=== PATIENT | male | born 1950 | race Hispanic/Latino ===

== ENCOUNTER 2018-08-12 09:49 | Emergency (ER) | payer SELFPAY ==
[2018-08-12 10:11] LABS: Bilirubin Negative (Negative); Blood, Urine Negative (Negative); Clarity CLEAR (Clear); Glucose, Urine (Dipstick) Negative (Negative); Leukocyte Negative (Negative); Nitrite Negative (Negative); Protein, Urine (Dipstick) Negative (Neg-Trace); Specific Gravity, Urine 1.007 (1.002-1.036); Urobilinogen 0.2 mg/dL (0.2-1.0); pH, Urine 6.5 (5.0-9.0)
[2018-08-12 11:10] LABS: #Basophils 0.1 thou/uL (0.0-0.2); #Eosinphils 0.1 thou/uL (0.0-0.7); #Lymphocytes 1.2 thou/uL (1.20-3.40); #Monocytes 0.3 thou/uL (0.11-0.59); #Neutrophils 3.2 thou/uL (1.40-6.50); %Basophils 1.3 % (0.0-1.0); %Eosinophils 1.6 % (0.0-10.0); %Lymphocytes 24.8 % (21.0-51.0); %Monocytes 5.3 % (0.0-10.0); %Neutrophils 67.1 % (42.0-75.0); Hemoglobin 14.1 g/dL (14.0-18.0); Mean Corpuscular HGB CONC 33.2 g/dL (32.0-36.0); Mean Corpuscular Volume 93.4 fL (78.0-98.0); Mean Platelet Volume 7.9 fL (7.4-10.4); Platelet Count 216 thou/uL (130-400); RBC Distribution Width 12.3 % (11.5-14.5); Red Blood Cell (RBC) Count 4.55 mill/uL (4.70-6.10); White Blood Cell (WBC) Count 4.8 thou/uL (4.8-10.8)
[2018-08-12 11:27] LABS: Anion Gap 16 mmol/L (10-20); BUN (Urea Nitrogen) 29 mg/dL (8.4-25.7); Calc. Creatinine Clearance 0 mL/min (70-130); Calcium 9.2 mg/dL (7.8-10.44); Carbon Dioxide 18 mmol/L (23-31); Chloride 110 mmol/L (98-107); Estimated GFR-MDRD 30; Glucose 92 mg/dL (80-115); Potassium 3.6 mmol/L (3.5-5.1); Sodium 140 mmol/L (136-145)
== END 2018-08-12 11:50 | disposition home or self-care (01) ==
LOC: ERS 09:49
DX: N13.9 Obstructive and reflux uropathy, unspecified (principal); N28.9 Disorder of kidney and ureter, unspecified
CPT/HCPCS: 36415; 51702; 80048; 81003; 85025

== ENCOUNTER 2018-09-01 15:16 | Inpatient (IN) | payer MEDICAID, SELFPAY ==
[2018-09-01 16:07] LABS: Bilirubin Negative (Negative); Blood, Urine Large (Negative); Clarity TURBID (Clear); Glucose, Urine (Dipstick) Negative (Negative); Leukocyte Large (Negative); Nitrite Positive (Negative); Protein, Urine (Dipstick) 100 mg/dL (Neg-Trace); Specific Gravity, Urine 1.016 (1.002-1.036); Urobilinogen 0.2 mg/dL (0.2-1.0)
[2018-09-01 16:08] LABS: Bacteria/HPF 3+ HPF (None Seen); Pathc Cast-AUWi Flag 10.45 (0-2.49); RBC/HPF 21-50 HPF (0-3); Yeast-AUWi Flag 41.9 (0-25.0)
[2018-09-01 16:15] LABS: Hyaline Casts/LPF 0-3 HYALINE CAST LPF (0-3 Hyaline); Other Casts/LPF None Seen LPF (0-3 Hyaline)
[2018-09-01 16:16] LABS: Renal Epithelial 0-3 HPF (0-3); Transitional Epithelial 0-3 HPF (0-3)
[2018-09-01 16:17] LABS: #Basophils 0.1 thou/uL (0.0-0.2); #Eosinphils 0.1 thou/uL (0.0-0.7); #Lymphocytes 1.4 thou/uL (1.20-3.40); #Monocytes 0.6 thou/uL (0.11-0.59); #Neutrophils 5.3 thou/uL (1.40-6.50); %Eosinophils 1.9 % (0.0-10.0); %Lymphocytes 18.6 % (21.0-51.0); %Monocytes 7.7 % (0.0-10.0); %Neutrophils 70.9 % (42.0-75.0); Hemoglobin 13.8 g/dL (14.0-18.0); Mean Corpuscular HGB CONC 33.8 g/dL (32.0-36.0); Mean Corpuscular Hemoglobin 30.8 pg (27.0-31.0); Mean Corpuscular Volume 91.2 fL (78.0-98.0); Mean Platelet Volume 7.6 fL (7.4-10.4); Platelet Count 255 thou/uL (130-400); RBC Distribution Width 12.2 % (11.5-14.5); Red Blood Cell (RBC) Count 4.48 mill/uL (4.70-6.10); White Blood Cell (WBC) Count 7.4 thou/uL (4.8-10.8)
[2018-09-01 16:37] LABS: ALT (SGPT) 15 U/L (8-55); AST (SGOT) 19 U/L (5-34); Albumin 4.3 g/dL (3.4-4.8); Alkaline Phosphatase 71 U/L (40-150); Anion Gap 13 mmol/L (10-20); BUN (Urea Nitrogen) 26 mg/dL (8.4-25.7); Bilirubin, Total 0.7 mg/dL (0.2-1.2); Calc. Creatinine Clearance 0 mL/min (70-130); Calcium 9.8 mg/dL (7.8-10.44); Carbon Dioxide 24 mmol/L (23-31); Chloride 102 mmol/L (98-107); Estimated GFR-MDRD 28; Globulin 3.7 g/dL (2.4-3.5); Glucose 115 mg/dL (80-115); Potassium 4.2 mmol/L (3.5-5.1); Sodium 135 mmol/L (136-145)
--- NOTE | 2018-09-01 16:59 | RAD ---
CHEST ONE VIEW: 09/01/18 HISTORY: Pain. COMPARISON: None. FINDINGS: Slight elongation of the aorta. Normal cardiac silhouette. Pulmonary vessels and hilum are normal. No consolidation or mass. No pneumothorax or osseous abnormalities. Calcified granuloma of the right anika ng base. IMPRESSION: No acute cardiopulmonary process. POS: H
[2018-09-01 18:03] LABS: Troponin I Less than 0.010 ng/mL (< 0.028)
[2018-09-01] MEDS ORDERED: MEROPENEM 1 GM/50 ML 1 GM in Premix Bag 1 BAG IVPB SCH (18:30)
[2018-09-01 21:33] VITALS: BMI 28.7
[2018-09-01] MEDS: Sodium Chloride 0.45% 1,000 ML IV SCH (23:07)
[2018-09-01] MEDS: Heparin 5,000 UNITS/ML VIAL SC SCH (23:50)
[2018-09-02 05:54] LABS: #Eosinphils 0.2 thou/uL (0.0-0.7); #Lymphocytes 1.4 thou/uL (1.20-3.40); #Monocytes 0.5 thou/uL (0.11-0.59); #Neutrophils 4.3 thou/uL (1.40-6.50); %Basophils 0.5 % (0.0-1.0); %Eosinophils 2.6 % (0.0-10.0); %Lymphocytes 21.7 % (21.0-51.0); %Monocytes 8.3 % (0.0-10.0); %Neutrophils 66.9 % (42.0-75.0); Mean Corpuscular HGB CONC 33.7 g/dL (32.0-36.0); Mean Corpuscular Hemoglobin 30.9 pg (27.0-31.0); Mean Corpuscular Volume 91.6 fL (78.0-98.0); Mean Platelet Volume 7.5 fL (7.4-10.4); Platelet Count 214 thou/uL (130-400); RBC Distribution Width 12.2 % (11.5-14.5); Red Blood Cell (RBC) Count 4.22 mill/uL (4.70-6.10); White Blood Cell (WBC) Count 6.5 thou/uL (4.8-10.8)
[2018-09-02 06:06] LABS: Anion Gap 8 mmol/L (10-20); BUN (Urea Nitrogen) 20 mg/dL (8.4-25.7); Calc. Creatinine Clearance 47 mL/min (70-130); Calcium 9.2 mg/dL (7.8-10.44); Carbon Dioxide 24 mmol/L (23-31); Chloride 107 mmol/L (98-107); Estimated GFR-MDRD 40; Glucose 94 mg/dL (80-115); Potassium 4.2 mmol/L (3.5-5.1); Sodium 135 mmol/L (136-145)
--- NOTE | 2018-09-02 07:00 | PDOC.EVN ---
Event Note - Event Note Event Note: h&p dictation [id number]
[2018-09-02] MEDS: MEROPENEM 1 GM/50 ML 1 GM in Premix Bag 1 BAG IVPB SCH ×2 (08:39→20:01)
[2018-09-02] MEDS: Sodium Chloride 0.45% 1,000 ML IV SCH (08:39)
[2018-09-02] MEDS: Heparin 5,000 UNITS/ML VIAL SC SCH ×3 (08:43→20:01)
--- NOTE | 2018-09-02 13:46 | PDOC.PN ---
- Subjective Encounter Start Date: 09/02/18 Encounter Start Time: 13:44 Mr. Noa Hamilton was seen today in follow-up of UTI. He says he feels fine today. He denies abdominal pain. - Objective Resuscitation Status: Resuscitation Status FULL:Full Resuscitation MAR Reviewed: Yes Vital Signs & Weight: Vital Signs (12 hours) Temp Pulse Resp BP Pulse Ox 09/02/18 10:59 98.4 F 60 16 142/76 H 96 09/02/18 07:35 98.4 F 55 L 16 141/82 H 96 09/02/18 04:00 97.8 F 64 16 126/81 98 Weight Weight 177 lb 12.8 oz I&O: 09/01/18 09/02/18 09/03/18 06:59 06:59 06:59 Intake Total 875 266.66 Output Total 2775 Balance -1900 266.66 Result Diagrams: 09/02/18 05:29 09/02/18 05:29 Phys Exam - Physical Examination Respiratory: no wheezing, no rales, no rhonchi, clear to auscultation bilateral Cardiovascular: RRR, no significant murmur, no rub no gallop Gastrointestinal: soft, non-tender, no distention, positive bowel sounds Musculoskeletal: no edema Dx/Plan (1) UTI (urinary tract infection) Status: Acute (2) Acute renal failure Status: Acute - Plan * UTI- urine culture is growing E. Coli- sensitivities are pending * Acute renal failure- ( from volume depletion and UTI)- his renal function has improved, but it is not yet to baseline- will continue IV hydration.
--- NOTE | 2018-09-02 15:51 | CON ---
DATE OF CONSULTATION: 09/02/2018 REASON FOR CONSULTATION: Suprapubic pain and apparent prostatitis after a multicore prostate needle biopsy. HISTORY OF PRESENT ILLNESS: Mr. Julianna Hamilton is a pleasant Namibian speaking only 68-year-old Hispa abigail male. He recently underwent a prostate needle biopsy by Dr. Sanabria. The patient presented to [facility] emergency department with chills, and hypotension with blood pressure of 65/35. The patient was br ought in for management of apparent urosepsis or acute prostatitis after multicore prostate needle bi opsy. PAST MEDICAL HISTORY: Prostate nodule status post prostate needle biopsy. No other medical history known. PAST SURGICAL HISTORY: Prostate biopsy. PSYCHIATRIC: No previous known psychiatric history. SOCIAL HISTORY: The patient denies current alcohol use and drug use and has no smoking history that he reports. ALLERGIES: No known drug allergies. OUTPATIENT MEDICATIONS: The patient does not report taking any. REVIEW OF SYSTEMS: Constitutional: The patient is reported suprapubic pain in the emergency room, w hich is resolved with placement of Merida catheter, reports febrile symptoms. Head, Ears, Nose, and T hroat: Negative. Cardiac: Negative. Pulmonary: Negative. Abdominal: The patient reports suprap ubic pain. No history of GI issues. Genitourinary: The patient reports suprapubic discomfort which improved with placement of Meriad catheter. Musculoskeletal: Negative. PHYSICAL EXAMINATION: CONSTITUTIONAL: No current febrile symptoms. The patient had reported temperature of almost 100 deg leonardo in the emergency department. HEAD, EARS, NOSE AND THROAT: Negative. NECK: Negative. PULMONARY: Negative. CARDIOVASCULAR: Regular rate and rhythm without murmur, rub or gallop. Heart sounds are normal. ABDOMEN: Soft and nontender. There is no suprapubic tenderness on today's examination and apparent change from his emergency room evaluation. I note Merida catheter in place. BACK: No costovertebral angle tenderness, no point tenderness along the course of the spine. GENITOURINARY: Indwelling Merida catheter is in place. Urine has a flocculent material present in it . ASSESSMENT AND PLAN: Probable acute prostatitis, possible urosepsis, following multicore prostate ne edle biopsy. 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 Sanabria. Broad spectrum antibiotic coverage is appropriate. I would also recommend based on the presence of flocculent material in the patient's Merida catheter line that the patient also will be covered with a ppropriate antifungal agents. Total consultation assessment time over 60 minutes.
[2018-09-02] MEDS: Sodium Chloride 0.9% 1,000 ML IV SCH ×2 (16:25→22:52)
[2018-09-03] MEDS: Sodium Chloride 0.9% 1,000 ML IV SCH ×2 (03:20→16:54)
[2018-09-03 04:25] LABS: #Eosinphils 0.2 thou/uL (0.0-0.7); #Lymphocytes 1.5 thou/uL (1.20-3.40); #Monocytes 0.3 thou/uL (0.11-0.59); #Neutrophils 2.1 thou/uL (1.40-6.50); %Basophils 0.9 % (0.0-1.0); %Lymphocytes 36.2 % (21.0-51.0); %Monocytes 7.1 % (0.0-10.0); %Neutrophils 50.8 % (42.0-75.0); Hemoglobin 12.9 g/dL (14.0-18.0); Mean Corpuscular HGB CONC 33.7 g/dL (32.0-36.0); Mean Corpuscular Hemoglobin 30.8 pg (27.0-31.0); Mean Corpuscular Volume 91.4 fL (78.0-98.0); Mean Platelet Volume 7.6 fL (7.4-10.4); Platelet Count 254 thou/uL (130-400); RBC Distribution Width 12.1 % (11.5-14.5); White Blood Cell (WBC) Count 4.2 thou/uL (4.8-10.8)
[2018-09-03 04:36] LABS: Anion Gap 9 mmol/L (10-20); BUN (Urea Nitrogen) 21 mg/dL (8.4-25.7); Calc. Creatinine Clearance 50 mL/min (70-130); Calcium 9.2 mg/dL (7.8-10.44); Carbon Dioxide 25 mmol/L (23-31); Chloride 108 mmol/L (98-107); Estimated GFR-MDRD 43; Glucose 94 mg/dL (80-115); Potassium 4.2 mmol/L (3.5-5.1); Sodium 138 mmol/L (136-145)
[2018-09-03] MEDS: MEROPENEM 1 GM/50 ML 1 GM in Premix Bag 1 BAG IVPB SCH ×2 (09:24→20:41)
[2018-09-03] MEDS: Fluconazole 100 MG TAB PO SCH (09:24)
[2018-09-03] MEDS: Heparin 5,000 UNITS/ML VIAL SC SCH ×3 (09:24→20:41)
--- NOTE | 2018-09-03 16:28 | PRG ---
DATE OF SERVICE: 09/03/2018 REASON FOR CONSULTATION: 1. Suprapubic pain and apparent prostatitis after multicore prostate needle biopsy. 2. Apparent urosepsis. HISTORY OF PRESENT ILLNESS: Mr. Julianna Hamilton is a pleasant Serbian speaking only 68-year-old [place] ab[place] male who underwent a recent prostate needle biopsy by Dr. Sanabria. The patient presented to the e mergency department with chills, hypotension and blood pressure of 65/35 and was appropriately capo t in for management of apparent urosepsis and acute prostatitis after multicore prostate needle biops y. Please see my initial consultation report from 09/02/2018 for additional details. PHYSICAL EXAMINATION: VITAL SIGNS: Temperature is currently 97.6, pulse 60, respirations 16, O2 saturations 96% on room ai r, blood pressure is 168/91. HEAD, EYES, EARS, NOSE, AND THROAT: Extraocular movements are intact. Sclerae are anicteric. Oroph arynx is clear. NECK: Supple. LUNGS: Clear to auscultation bilaterally. CARDIAC: Regular rate and rhythm without murmur, rub or gallop. ABDOMEN: Soft and nontender. There is no palpable mass. BACK: No costovertebral angle tenderness on either side. GENITOURINARY: Merida catheter is in place and is draining much more clear urine today than it was ye sterday. There is no evidence of recurrent flocculent material seen in the urine. LABORATORY STUDIES: The patient's white count has dropped from 7.4 thousand on 09/01/2018, down to 4 .2 thousand which is technically low. The patient's neutrophil percentile was 50.8% currently. The ANC is 2.1. Serum chemistries show the patient's blood urea nitrogen at 21, improved from admission when it was 26 and the creatinine is now down to 1.59 from 2.30. A Merida catheter remains in place. Microbiology: The patient's urine culture obtained from Merida placed on 09/01/2018 shows presumptive E. coli. Sensitivities are not yet available for this patient's urine culture. ASSESSMENT AND PLAN: 1. Urinary outlet obstruction secondary to acute on chronic prostatitis. The patient is currently m anaged with indwelling Merida catheter. The patient will need to undergo a voiding trial in Dr. Mary garcia's office following discharge. 2. Infectious Disease concerns. The patient has Escherichia coli growing from his urine. Sensitivi ties are not yet available for this and due to these proper screening that was performed on this remi ent prior to his prostate needle biopsy by Dr. Sanabria, I would recommend this patient remain in the h ospital until the culture results are known. The patient will be appropriately treated with a long c ourse for a complicated urinary tract infection and prostatitis. Generally this will be a one month course of antibiotics to start. 3. History of elevated PSA. The patient should continue to follow up with Dr. Sanabria regarding his history as well as the results from his recently performed multicore prostate needle biopsy. Total evaluation and assessment time in this patient is over 35 minutes.
--- NOTE | 2018-09-03 16:38 | PDOC.PN ---
- Subjective Encounter Start Date: 09/03/18 Encounter Start Time: 16:36 Mr. Noa Hamilton was seen today in follow-up of UTI with acute renal failure. He does not have any complaints. - Objective Resuscitation Status: Resuscitation Status FULL:Full Resuscitation MAR Reviewed: Yes Vital Signs & Weight: Vital Signs (12 hours) Temp Pulse Resp BP Pulse Ox 09/03/18 11:56 97.6 F 60 16 168/91 H 96 09/03/18 08:00 97.9 F 60 16 127/80 96 Weight Weight 177 lb 12.8 oz I&O: 09/02/18 09/03/18 09/04/18 06:59 06:59 06:59 Intake Total 875 2126.66 Output Total 2775 2800 Balance -1900 -673.34 Result Diagrams: 09/03/18 04:09 09/03/18 04:09 Phys Exam - Physical Examination HEENT: PERRLA Respiratory: no wheezing, no rales, no rhonchi, clear to auscultation bilateral Cardiovascular: RRR, no significant murmur, no rub Gastrointestinal: soft, non-tender, no distention, positive bowel sounds Musculoskeletal: no edema Dx/Plan (1) UTI (urinary tract infection) Status: Acute (2) Acute renal failure Status: Acute - Plan * UTI- still awaiting the final culture results. I called the lab, and it should be available late tonight or tomorrow * Acute renal failure- improving
[2018-09-04] MEDS: Sodium Chloride 0.9% 1,000 ML IV SCH ×2 (04:20→18:18)
[2018-09-04] MEDS: Fluconazole 100 MG TAB PO SCH (09:42)
[2018-09-04] MEDS: MEROPENEM 1 GM/50 ML 1 GM in Premix Bag 1 BAG IVPB SCH ×2 (09:42→20:53)
[2018-09-04] MEDS: Heparin 5,000 UNITS/ML VIAL SC SCH ×3 (09:43→21:00)
[2018-09-04 09:44] LABS: Anion Gap 12 mmol/L (10-20); BUN (Urea Nitrogen) 21 mg/dL (8.4-25.7); Calc. Creatinine Clearance 61 mL/min (70-130); Calcium 9.3 mg/dL (7.8-10.44); Carbon Dioxide 22 mmol/L (23-31); Chloride 108 mmol/L (98-107); Estimated GFR-MDRD 54; Glucose 87 mg/dL (80-115); Potassium 4.1 mmol/L (3.5-5.1); Sodium 138 mmol/L (136-145)
--- NOTE | 2018-09-04 10:50 | HP ---
PRIMARY CARE PHYSICIAN: Kamila. CHIEF COMPLAINT: Suprapubic pain. HISTORY OF PRESENT ILLNESS: This is a 68-year-old male with recently diagnosed history of prostate cancer who also recently saw urologist and has a Merida placed for urinary retention and a prostate biopsy conducted. Post-procedurally , the patient had episode of chills and feeling poorly and has noticed some suprapubic discomfort post-procedurally. Of note, the patient was on ciprofloxacin for urinary tract infection. Upon presentation to the emergency department, he was found to have a blood pressure systolic of 65 and diastolic 35. He was also found at the time of presentation to have a persistent urinary tract infection. Communication with the patient's urologist demonstrated that cultures drawn previously were significant for E. coli with multiple drug resistant characteristics. In the emergency department, the patient received empiric meropenem along with IV fluid resuscitation. At the time of my evaluation, patient feels significantly improved. No longer have chills. Blood pressure has also significantly improved. REVIEW OF SYSTEMS: As per HPI. CONSTITUTIONAL: The patient denies any fevers , but endorses chills as noted above. HEENT: No new headaches, dizziness, lightheadedness, or changes in vision. CARDIOVASCULAR: Denies any chest pain, chest pressure, left-sided arm numbness or tingling. Denies any bilateral lower extremity swelling. RESPIRATORY: Denies any shortness of breath, issues with congestion, cough or recent upper respiratory infection. GASTROINTESTINAL : Denies any nausea, vomiting, suprapubic pain as above, but no other abdominal pain. GENITOURINARY: As described above. MUSCULOSKELETAL: Denies any myalgias or arthralgias. HOME MEDICATIONS: Over the counter medications, supplements, vitamins. Patient also denies taking any regular home medications. ALLERGIES: No known drug allergies. FAMILY HISTORY: Patient denies any family history of other family members with prostate cancer, any type cancer, drug resistant infections. Patient's personal and past medical history has been grossly negative up to this point. SOCIAL HISTORY: The patient denies any alcohol, tobacco or illicit drug use. The patient indicates he wishes to be FULL CODE. PHYSICAL EXAMINATION: GENERAL: Patient is awake, alert and conversant. The patient is Lao- speaking only and entire history and physical was obtained, otherwise child adolescent psychiatrist at bedside. HEENT: Normocephalic, atraumatic. Extraocular motions are intact. Poor dentition, moist mucous membranes. CARDIOVASCULAR: S1, S2. No murmurs, rubs or gallops. Pulses 2+ in bilateral lower and upper extremities. No peripheral edema. RESPIRATORY: Equal air movements. No wheezes, rales or rhonchi. Grossly clear to auscultation without shortness of breath on conversation. ABDOMEN: Positive bowel sounds, soft, slightly tender in the suprapubic region. The Merida was draining light yellow urine. LABORATORY DATA: WBC 7.4, hemoglobin 13.8, hematocrit 40.9, platelets 255. Sodium 135, potassium 4.2, chloride 102, bicarbonate 13, BUN 26, creatinine 2.3 , glucose 115, lactic acid 1.3, calcium 9.8, total bilirubin 0.7, AST 19, ALT 15 , alkaline phosphatase 71. Troponin less than 0.01. Total protein 8.0 and albumin 4.3. UA is positive for protein, large amount of blood, positive nitrite, leukocyte esterase large, urine RBC 21-50, urine WBCs greater than 50, squamous epithelial cells 4-6, urine bacteria 3+. ASSESSMENT AND PLAN: This is a 68-year-old female who presents with a chief complaint of chills. 1. Sepsis: Chills and hypotension with a source which is urinary tract infection which is known to be drug-resistant based on prior sensitivity. Repeat urine culture given the patient's hypotension, concern for the possibility of bacteremia. Pending blood cultures. Empiric meropenem and close monitoring of the patient's continued hemodynamics. We will check orthostatic vital signs as well. Not likely acute kidney injury in the setting of obstructive uropathy. The patient currently has a Merida in place. We will continue to monitor the patient's renal function and urine output. If no significant improvement on a rapid timeframe, low threshold for consulting both Urology and Nephrology depending on patient's progress. Prostate Cancer - appears to be stable. Continue to monitor urine output. DIET: As tolerated. ACTIVITY: As tolerated. Deep venous thrombosis prophylaxis with heparin. The patient is admitted to the oncology floor. The patient is a FULL CODE. MTDD
--- NOTE | 2018-09-04 13:40 | PDOC.PN ---
- Subjective Encounter Start Date: 09/04/18 Encounter Start Time: 13:34 Mr. Latham was seen today in follow-up of UTI with sepsis. He does not have any complaints. - Objective Resuscitation Status: Resuscitation Status FULL:Full Resuscitation MAR Reviewed: Yes Vital Signs & Weight: Vital Signs (12 hours) Temp Pulse Resp BP Pulse Ox 09/04/18 11:55 98.0 F 66 16 128/75 94 L 09/04/18 08:51 97.8 F 61 16 149/81 H 93 L 09/04/18 04:29 97.9 F 60 20 140/65 97 Weight Weight 177 lb 12.8 oz I&O: 09/03/18 09/04/18 09/05/18 06:59 06:59 06:59 Intake Total 2126.66 2075 Output Total 2800 2900 Balance -673.34 -825 Result Diagrams: 09/03/18 04:09 09/04/18 08:43 Phys Exam - Physical Examination Respiratory: no wheezing, no rales, no rhonchi, clear to auscultation bilateral Cardiovascular: RRR, no significant murmur, no rub Gastrointestinal: soft, non-tender, no distention, positive bowel sounds Musculoskeletal: no edema Dx/Plan (1) UTI (urinary tract infection) Status: Acute (2) Acute renal failure Status: Acute (3) Urinary retention Code(s): R33.9 - RETENTION OF URINE, UNSPECIFIED Status: Acute - Plan * UTI due to E. Coli which is Multi- Drug resistant- Will continue Meropenem, and Consult ID * Acute renal failure- improving * Urinary Retention- Will need to leave Merida catheter in place at discharge * Consult Case Management for Outpatient IV antibiotics.
--- NOTE | 2018-09-04 13:42 | CON ---
DATE OF CONSULTATION: 09/04/2018 REASON FOR CONSULTATION: Urinary tract infection. HISTORY OF PRESENT ILLNESS: A 68-year-old patient who has a history of urinary obstruction which req uired Merida catheter placement and evidence of prostate cancer on prostate biopsy with an elevated PS A. Before the biopsy he had a screening for resistant pathogens and the organism appears to be susce ptible to Bactrim. He was given that as a prophylactic therapy, but now has an ESBL organism retriev ed. He feels improvement in his symptoms of chills and fever and suprapubic discomfort. REVIEW OF SYSTEMS: Denies any headaches, visual symptoms, sore throat, odynophagia, dysphagia, no co ugh or sputum production or chest pain, no abdominal pain, no diarrhea, no bleeding. No joint sympto ms. No neurological symptoms. PAST MEDICAL HISTORY: Urinary obstruction due to prostate cancer, recently diagnosed. ALLERGIES: None. FAMILY HISTORY: Noncontributory. SOCIAL HISTORY: No smoking history. CURRENT MEDICATIONS: Diflucan, heparin, meropenem. PHYSICAL EXAMINATION: VITAL SIGNS: T-max 98.2, blood pressure 140/80, pulse 61, O2 saturation 94%. GENERAL: Appears no distress. SKIN: With some maceration and intertriginous mass eruption in the groin area. Peripheral IV access . The patient has a Merida catheter. No lymphadenopathy. HEENT: Ocular movements conjugate. Oral cavity with few missing teeth. No oral mucosal lesions. NECK: Supple, no jugular vein distention, no thyromegaly. LUNGS: With symmetric clear breath sounds. HEART: S1, S2, regular rate. No S3, S4. ABDOMEN: Soft, not distended or tender. No bladder distention. EXTREMITIES: No joint inflammatory activity. Pulses 1+ in dorsalis pedis. No edema. Plantar respo nses are flexor. NEUROLOGIC: Cognitive function appears to be intact. LABORATORY DATA: White cell count of 7.4, now 4.2, hemoglobin 12.9, MCV 91, platelets normal and the sodium 135, creatinine was 2.3 and now 1.31, GFR up from 28-54. Liver profile normal, albumin 4.3. Urinalysis was greater than 50 WBCs. Culture with ESBL E. coli retrieved. Two sets of blood cultur es thus far negative. ASSESSMENT: Newly identified prostate cancer with urinary obstruction requiring Merida catheterizatio n now with evidence of an invasive urinary tract infection. Bacteremia has not yet been identified. We will switch him to IV Invanz in the outpatient setting fo r about 10 days. PICC line placement. The patient will likely need intervention and he may have to repeat a course of Invanz prior to the intervention and continuing in the days immediately after the TURP.
[2018-09-05 06:08] LABS: BUN (Urea Nitrogen) 19 mg/dL (8.4-25.7); Calc. Creatinine Clearance 54 mL/min (70-130); Calcium 9.3 mg/dL (7.8-10.44); Carbon Dioxide 25 mmol/L (23-31); Estimated GFR-MDRD 48; Glucose 95 mg/dL (80-115)
[2018-09-05] MEDS: Sodium Chloride 0.9% 1,000 ML IV SCH (06:10)
[2018-09-05 06:20] LABS: Chloride 108 mmol/L (98-107); Potassium 4.7 mmol/L (3.5-5.1); Sodium 140 mmol/L (136-145)
[2018-09-05 06:23] LABS: Anion Gap 13 mmol/L (10-20)
[2018-09-05] MEDS: MEROPENEM 1 GM/50 ML 1 GM in Premix Bag 1 BAG IVPB SCH (07:58)
[2018-09-05] MEDS: Fluconazole 100 MG TAB PO SCH (08:27)
[2018-09-05] MEDS: Heparin 5,000 UNITS/ML VIAL SC SCH (10:55)
--- NOTE | 2018-09-05 13:38 | PDOC.PN ---
- Subjective Encounter Start Date: 09/05/18 Encounter Start Time: 13:36 Mr. Latham was seen today in follow-up of UTI with sepsis. He does not have any complaints. - Objective Resuscitation Status: Resuscitation Status FULL:Full Resuscitation MAR Reviewed: Yes Vital Signs & Weight: Vital Signs (12 hours) Temp Pulse Resp BP Pulse Ox 09/05/18 08:00 100 09/05/18 07:47 97.8 F 58 L 18 150/84 H 98 09/05/18 05:00 98.6 F 60 16 146/87 H 97 Weight Weight 177 lb 12.8 oz I&O: 09/04/18 09/05/18 09/06/18 06:59 06:59 06:59 Intake Total 2075 1100 Output Total 2900 1825 Balance -825 -725 Result Diagrams: 09/03/18 04:09 09/05/18 05:24 Phys Exam - Physical Examination Respiratory: no wheezing, no rales, no rhonchi, clear to auscultation bilateral Cardiovascular: RRR, no significant murmur, no rub Gastrointestinal: soft, non-tender, no distention, positive bowel sounds Musculoskeletal: no edema Dx/Plan (1) UTI (urinary tract infection) Status: Acute (2) Acute renal failure Status: Acute (3) Urinary retention Code(s): R33.9 - RETENTION OF URINE, UNSPECIFIED Status: Acute - Plan * UTI with sepsis- improved * Outpatient antibiotics have been arranged * He is stable for discharge home.
[2018-09-05 14:58] VITALS: BP 152/84; TEMP 98.3
--- NOTE | 2018-09-05 15:52 | SPC ---
SONOGRAPHIC GUIDED LEFT UPPER EXTREMITY PICC: History: Urinary tract infection. Long-term antibiotics. FINDINGS: After explaining the procedure and answering all questions, the left upper extremity was prepped and draped in the usual sterile fashion. Sterile technique, buffered local anesthesia, sonographic guidan ce, and a 22 gauge needle were used to carefully access the left basilic vein. Standard technique was used to place the tip of a 5 Malay dual-lumen PICC so that the tip lies at the level of the cavoatr ial junction. Catheter was flushed and secured externally. Patient tolerated the procedure well and w as returned in unchanged condition. Fluoro time 0 seconds. IMPRESSION: Left upper extremity PICC is ready for use. POS: SUMAN
--- NOTE | 2018-09-05 22:18 | DIS ---
DATE OF ADMISSION: 09/01/2018 DATE OF DISCHARGE: 09/05/2018 [facility] DISPOS[facility]: Home. PRIMARY DISCHARGE DIAGNOSES: 1. Urinary tract infection secondary to Escherichia coli, which is multidrug resistant. 2. Acute renal failure secondary to obstructive uropathy. 3. Obstructive Uropathy 4. BPH. DISCHARGE MEDICATIONS: Patient will be receiving Invanz 1 gram IV daily at the infusion center for the next 10 days. PROCEDURES DONE DURING ADMISSION: No special procedures done. ALLERGIES: No known drug allergies. CODE STATUS: FULL CODE. HOSPITAL COURSE: Mr. Latham is a pleasant 68-year-old gentleman who was admitted to the hospital. When he presented to the emergency room with hypotension and suprapubic discomfort. He also had fevers or subjective chills and feeling generally bad. He was evaluated in the emergency room and found to have findings suggestive of a urinary tract infection as well as an acute renal failure. His creatinine on the initial presentation was approximately 2.3. He was started on IV fluids as well as IV antibiotics. He was seen by Urology and a Merida catheter was placed due to the urinary retention. He has an enlarged prostate and it is suspected that this could be the reason for the urinary retention. Urinary tract infection or the urine culture grew E. coli, which was resistant to most IV antibiotics; however, it was sensitive to meropenem and Invanz. He will therefore be seen in the infusion center for IV Invanz for the next 10 days. He is to continue with the Merida catheter until he is seen by Urology. I spoke with Dr. Mortensen, he says he is probably going to need a transurethral prostatic resection in the outpatient setting. He suspects that he likely has prostate cancer. The acute renal failure was improving after relief of the obstruction with his creatinine at 1.46 at time of discharge. He is to follow up with Dr. Mortensen as instructed. YAMILE
[2018-09-06] MEDS ORDERED: Heparin 5,000 UNITS/ML VIAL SC SCH (09:00)
--- NOTE | 2018-09-07 10:31 | PQF ---
I only saw the patient on admission and can therefore best comment on that part. It appears that the request is for diagnosis at discharge. Please re- route to the discharging physician and let me know if there is any difficulty. Thank you. [employer] Tim Adler PEGGY ERIC [id number] CLINICAL DOCUMENTATION CLARIFICATION FORM: POST DISCHARGE Addendum to original discharge summary date: ____ Late entry note date: __ Please exercise your independent, professional judgment in responding to the clarification form. Clinical indicators are provided on the bottom of this form for your review Please check appropriate box(es): [ ] Sepsis due to: (UTI, acute prostatisis, post needle biopsy, etc.) Due to: [ ] Device (please specify) [ ] Implant [ ] Graft [ ] Infusion [ ] SIRS due to non-infectious process (please specify etiology) [ ] with organ dysfunction [ ] without organ dysfunction [ ] Severe sepsis with acute organ dysfunction of: (Examples: respiratory failure, encephalopathy, acute kidney failure, other) [ ] Septic Shock [ ] Localized infection without sepsis [ ] Other diagnosis [ ] Unable to determine In addition, please specify: Present on Admission (POA): [ ] Yes [ ] No [ ] Unable to determine For continuity of documentation, please document condition throughout progress notes and discharge summary. Thank You. CLINICAL INDICATORS - SIGNS / SYMPTOMS / LABS apparent prostatitis after needle biopsy- consult 09/02 urosepsis or acute prostatitis after needle biopsy- consult 09/02 probable avute prostatitis, possible urosepsis following prostate needle biopsy - consult 09/02 apparent urosepsis and acute prostatitis following needle biopsy- pn 09/03 uti with sepsis- pn 09/04, 09/05 RISK FACTORS hypotension Infection/Bacteremia UTI, acute prostatitis prostate cancer [employer] ViewerTREATMENTS: ID Consult IV antibiotics - broad spectrum IV ?uids (This form is maintained as a part of the permanent medical record) 2014 [employer]. All Rights Reserved [email or web address] [email or web address] [phone] MTDD
--- NOTE | 2018-09-12 07:22 | PQF ---
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 Clinical indicators are provided on the bottom of this form for your review Please check appropriate box(es): [ X ] Sepsis due to: (UTI, acute prostatitis, post needle biopsy etc.) Due to: [ ] Device (please specify) [ ] Implant [ ] Graft [ ] Infusion [ ] SIRS due to non-infectious process (please specify etiology) [ X ] with organ dysfunction [ ] without organ dysfunction [ ] Severe sepsis with acute organ dysfunction of: (Examples: respiratory failure, encephalopathy, acute kidney failure, other) [ ] Septic Shock [ ] Localized infection without sepsis [ ] Other diagnosis [ ] Unable to determine In addition, please specify: Present on Admission (POA): [ X ] Yes [ ] No [ ] Unable to determine For continuity of documentation, please document condition throughout progress notes and discharge summary. Thank You. CLINICAL INDICATORS - SIGNS / SYMPTOMS / LABS apparent prostatitis after needle biopsy- consult 09/02 urosepsis or acute prostattis after needle biopsy- consult 09/02 probble acute prostatitis. possible urosepsis following prostate needle biopsy- consult 09/02 apparent urosepsis and acute prostatitiis following needle biopsy- pn 09/03 uti with sepsis- pn 09/04, 09/05 RISK FACTORS hypotensions infection/bacteremia uti, acute prostatitis prostate cancer [employer] Senior Net Software Engineer [employer] Win[employer] ViewerTREATMENTS: ID Consult IV antibiotics - broad spectrum IV ?uids (This form is maintained as a part of the permanent medical record) 2014 [email or web address]. All Rights Reserved Kimberli [email or web address] [phone] MTDD
== END 2018-09-05 15:49 | disposition home or self-care (01) | DRG 862 ==
LOC: ERS 15:16 → ONC 19:51 → OBSVTOIN 19:51 → ONC 09-04 14:56
PROVIDERS: ADMIT Internal Medicine; ATTEND Internal Medicine
PROC: 02HV33Z Insertion of Infusion Device into Superior Vena Cava, Percutaneous Approach (ICD-10-PCS; principal; 2018-09-05)
DX: T81.40XA Infection following a procedure, unspecified, initial encounter (principal); A41.9 Sepsis, unspecified organism; N39.0 Urinary tract infection, site not specified; N41.0 Acute prostatitis; N17.9 Acute kidney failure, unspecified; N13.8 Other obstructive and reflux uropathy; T81.44XA Sepsis following a procedure, initial encounter; C61 Malignant neoplasm of prostate; N40.1 Benign prostatic hyperplasia with lower urinary tract symptoms; R33.8 Other retention of urine; B96.20 Unspecified Escherichia coli [E. coli] as the cause of diseases classified elsewhere
CPT/HCPCS: 36415; 36569; 71045; 80048; 80053; 81003; 81015; 82553; 83605; 84484; 85025; 87040; 87077; 87086; 87186; 96361; 96365; J1644; J2185; J7050

== ENCOUNTER 2018-09-11 09:17 | Outpatient (CLI) | payer OTHER, SELFPAY ==
[2018-09-11] MEDS ORDERED: Iopamidol 370 76% 100 ML VIAL ONE (12:00)
--- NOTE | 2018-09-11 12:29 | CT ---
CT OF THE ABDOMEN AND PELVIS WITHOUT AND WITH CONTRAST: Comparison: None. History: Prostate cancer after recent biopsy. Technique: Multiple contiguous axial images were obtained in a CT of the abdomen and pelvis without a nd with IV contrast. Post contrast images were obtained in nephrographic and expiratory phases. Coron al reformats were performed. FINDINGS: There are nonobstructing calcifications in the right kidney measuring up to 1.3 cm in size. There is prominence of both ureters, left greater than right. There is a calculus in the distal right ureter m easuring 7 mm in size. No calcifications are seen in the left ureter. There are multiple calcificatio ns in the urinary bladder. Some of these calcifications are at the ureterovesical junction. The large st calcification seen on the left measures 8 mm in size. There is a Merida catheter in the urinary willi dder. The prostate is enlarged. There are numerous cysts in both kidneys, measuring up to 2.4 cm in s ize. No suspicious renal masses are identified. The liver, gallbladder, adrenal glands, spleen, and pancreas are unremarkable. No delay in either nep hrogram is seen. No abdominal or pelvic lymphadenopathy are appreciated. The large and small bowel are unremarkable. Degenerative changes are seen in the spine. The abdominal wall soft tissues are unremarkable. There i s a calcified granuloma in the right lower lung. IMPRESSION: 1. Right nonobstructing renal calculi. 2. Bilateral renal cysts. 3. Bladder calculi with prominence of both ureters. Some of these bladder calculi could potentially b e obstructing the distal ureters at the ureterovesical junction. 4. Bilateral nonobstructing renal calcifications and renal cysts. 5. Right ureteral calcification. POS: [facility]
--- NOTE | 2018-09-11 15:42 | NM ---
WHOLE BODY BONE SCAN: HISTORY: Malignant neoplasm of the prostate. COMPARISON: None. CORRELATION: CT abdomen and pelvis from today. RADIOPHARMACEUTICAL: Technetium 99m MDP, 33 millicuries, injected intravenously. FINDINGS: Increased uptake in the shoulders, sternoclavicular joints, elbows, wrists, knees, ankles, and feet, consistent with degenerative changes. There is a focus of intense uptake in the region of the left s uperior orbit. Tracer excretion through the kidneys is seen into the ureters and urinary bladder. A Merida catheter is present with a collection of urine in a bag, at the medial aspect of the left thigh. IMPRESSION: Nonspecific focus of increased uptake in the left superior orbit. Recommend correlation with a CT scan. POS: [facility]
== END 2018-09-11 09:18 | disposition home or self-care (01) ==
LOC: CT 09:17
PROVIDERS: ATTEND Urology
DX: C61 Malignant neoplasm of prostate (principal); N20.0 Calculus of kidney; N28.1 Cyst of kidney, acquired; N28.89 Other specified disorders of kidney and ureter; N21.0 Calculus in bladder
CPT/HCPCS: 74178; 78306; 82565; A9503

== ENCOUNTER 2018-09-22 08:01 | Day surgery (SDC) | payer SELFPAY ==
[2018-09-22 09:07] LABS: Hemoglobin 13.8 g/dL (14.0-18.0); Mean Corpuscular HGB CONC 33.5 g/dL (32.0-36.0); Mean Corpuscular Hemoglobin 30.3 pg (27.0-31.0); Mean Corpuscular Volume 90.4 fL (78.0-98.0); Mean Platelet Volume 7.1 fL (7.4-10.4); Platelet Count 235 thou/uL (130-400); RBC Distribution Width 12.3 % (11.5-14.5); Red Blood Cell (RBC) Count 4.55 mill/uL (4.70-6.10); White Blood Cell (WBC) Count 4.6 thou/uL (4.8-10.8)
[2018-09-22 09:13] LABS: Prothrombin Time 12.9 SEC (12.0-14.7)
[2018-09-22 09:14] LABS: PTT 33.4 SEC (22.9-36.1)
[2018-09-22 09:28] LABS: Anion Gap 13 mmol/L (10-20); BUN (Urea Nitrogen) 18 mg/dL (8.4-25.7); Calc. Creatinine Clearance 0 mL/min (70-130); Calcium 9.2 mg/dL (7.8-10.44); Carbon Dioxide 23 mmol/L (23-31); Chloride 107 mmol/L (98-107); Estimated GFR-MDRD 53; Glucose 93 mg/dL (80-115); Potassium 3.9 mmol/L (3.5-5.1); Sodium 139 mmol/L (136-145)
[2018-09-22] MEDS ORDERED: Fentanyl 100 MCG/2 ML VIAL ONE (11:06)
[2018-09-22] MEDS ORDERED: Iothalamate Meglumine 60% 50 ML VIAL FS ONE (11:38)
--- NOTE | 2018-09-22 13:13 | OP ---
DATE OF PROCEDURE: 09/22/2018 PREOPERATIVE DIAGNOSES: 1. Prostate cancer. 2. Bilateral hydro. 3. Left ureteral stone. 4. Bladder stones POSTOPERATIVE DIAGNOSES: 1. Prostate cancer. 2. Bilateral hydro. 3. Left ureteral stone. 4. Bladder stones 5. Probable left ureteral stone and locally advanced prostate cancer over the left trigone and left ureteral orifice. PROCEDURE PERFORMED: Cystoscopy, bilateral retrogrades, bilateral stent placement. SURGEON: Dr. Donny Sanabria ANESTHETIC: General. ESTIMATED BLOOD LOSS: Minimal. FINDINGS: There is 2, at most 3 bladder stones. The CAT scan appeared to show more than this. I th ink when looking at the CAT scan he probably actually has bilateral ureteral stones. He has an obvi ous tumor extension onto the trigone. The right ureteral orifice seems to be in its normal position, looked fairly normal. The left one on left side of the trigone appeared very edematous and appears to probably be becoming infiltrated with locally advancing prostate cancer. OPERATIVE TECHNIQUE: After obtaining written for verbal consent from the patient, [facility] He was placed in supine position on the treatment table. PlexiPulses were placed on his lower extremities and turned on. He was given a general anesthetic, oral obturator intubatio n. He was placed in the dorsal lithotomy position, sterilely prepped and draped. Cystoscopy was per formed with a 22-Kyrgyz sheath. This was well lubricated, passed under direct vision through the mal e urethra into the urinary bladder with aid of 30 degree lens and a video camera and monitor. There is no evidence of stricture disease, enlarged prostate lateral lobes. There was ill definition betwe en the bladder neck and the prostate and a very abnormal appearing trigone, especially on the left si de, making the left ureteral orifice unable to be easily seen. We went ahead because of these findin gs and attempted first to find the left ureteral orifice. This was done with a Pollack catheter 5-Fr ench and an angle tipped Glidewire, we were able to identify it after painstakingly looking through a ll this area of edema and then were able to feed a guidewire up it, open-ended catheter up over this and then pulled the guidewire, inject contrast showing a significantly hydronephrotic left ureter and probably a left distal stone. The guidewire was replaced. The open-ended catheter was removed and a 6 x 24 Polaris was then placed. We went ahead at this point because of the findings and did a the right retrograde. This was much easier and the right side was not significantly dilated. There did appear to be a stone on this side on the distal ureter. A guidewire was fed up on this side and cont rast was again injected through the Pollack catheter and the stent was placed up this side. No strin g was left on either of the 6 x 24 Polaris stents. The bladder straining instruments were removed. A new Merida catheter was placed as the patient had been in retention. A rectal exam was also done wh ich continues to reveal bilateral prostatic induration. The left side seems to be larger than the ri ght in terms of the size an area of induration, but it is certainly bilateral and it feels fixed on b imanual exam. This is a locally advanced prostate cancer and not something that would be amenable to radical prostatectomy both by bimanual exam with him asleep as well as with our cystoscopic findings indicating invasion into the bladder neck. At this point, the patient was taken out of dorsal litho madeline position, awakened, extubated, and taken by stretcher to the recovery room.
--- NOTE | 2018-09-22 14:32 | RAD ---
RETROGRADE URETEROGRAM INTRAOPERATIVE FLUOROSCOPY: History: Ureteral obstruction. FINDINGS/IMPRESSION: Intraoperative fluoroscopy was provided for retrograde study as performed by Dr. Wilkins. Spot fluoros copic images show contrast opacification of each renal collecting system and ureter with placement of double pigtail stents overlying each ureter, in good radiographic position. POS: [facility]
== END 2018-09-22 14:45 | disposition home or self-care (01) ==
LOC: SDC 08:01
PROVIDERS: ATTEND Urology
PROC: 0T788DZ Dilation of Bilateral Ureters with Intraluminal Device, Via Natural or Artificial Opening Endoscopic (ICD-10-PCS; principal; 2018-09-22)
DX: N13.2 Hydronephrosis with renal and ureteral calculous obstruction (principal); C61 Malignant neoplasm of prostate
CPT/HCPCS: 36415; 74420; 80048; 85027; 85610; 85730; C1758; C1769; J3010; Q9961

== ENCOUNTER 2018-10-04 06:47 | Day surgery (SDC) | payer SELFPAY ==
[2018-10-03 14:10] VITALS: BMI 27.9
[2018-10-04] MEDS ORDERED: Iothalamate Meglumine 60% 50 ML VIAL FS ONE (09:17)
[2018-10-04] MEDS ORDERED: Fentanyl 100 MCG/2 ML VIAL ONE ×2 (09:27)
[2018-10-04] MEDS ORDERED: PROPOFOL 200 MG/20 ML VIAL ONE (09:51)
[2018-10-04] MEDS ORDERED: Lidocaine 1% PF 5 ML VIAL ONE (09:51)
[2018-10-04] MEDS ORDERED: Glycopyrrolate 0.2 MG/ML 5 ML SYRINGE ONE (09:51)
[2018-10-04] MEDS ORDERED: Ondansetron PF 4 MG/2 ML Vial ONE (09:51)
[2018-10-04] MEDS ORDERED: ePHEDrine/0.9% NaCl/PF SYRINGE 50 mg/10 ml ONE (09:51)
--- NOTE | 2018-10-04 13:39 | RAD ---
RETROGRADE URETEROGRAM INTRAOPERATIVE FLUOROSCOPY: HISTORY: Stone removal. FINDINGS: Intraoperative fluoroscopy was provided for retrograde study as performed by Dr. Sanabria. Multiple sp ot images show initial bilateral ureteral stents. There is catheterization and contrast opacificatio n of dilated bilateral renal collecting systems. Final images show double pigtail ureteral stents in place. POS: [facility]
--- NOTE | 2018-10-04 14:17 | OP ---
DATE OF PROCEDURE: 10/04/2018 PREOPERATIVE DIAGNOSES: Bladder stones, bilateral hydronephrosis, prostate cancer and possible bilateral ureteral stones. PROCEDURE: Cystoscopy, laser lithotripsy of bladder stones, right rigid ureteroscopy, laser lithotripsy, and left rigid ureteroscopy. SPECIMEN: blladder and right ureteral stones. DRAINS PLACED: A 6 x 24 Polaris double-J stents bilaterally. A string attached in an 18 Tongan Merida catheter. FINDINGS: Three bladder stones that were broken up with laser and removed in pieces. There was a right distal stone broke up with laser and removed in pieces. There was no evidence of left ureteral stones. I think the left hydronephrosis is likely on the basis of his prostate cancer. OPERATIVE TECHNIQUE: After obtaining written and verbal consent from the patient, he was taken to the operating suite. He has already been on IV antibiotics as an outpatient basis. He was taken to the operating room and placed in supine position on the treatment table. PlexiPulses placed on his lower extremities and turned on. He was given a general anesthetic, oral obturator intubation. He was placed in dorsal lithotomy position and sterilely prepped and draped. Cystoscopy was performed with a 22-Tongan sheath. This was well lubricated, passed under direct vision through the male urethra into the urinary bladder with the video camera and monitor. The bladder had already been previously examined. We filled and emptied a number of times and then brought in a small caliber laser fiber to break up the bladder stones and remove those in pieces with a pair of grasping forceps. At this point, the right double-J stent was brought out through the tip of the urethral meatus with a pair of grasping forceps and a wire was fed up through it. The instruments were removed and a rigid ureteroscope was brought in and passed under direct vision through the male urethra into the bladder and up adjacent to the guidewire. A stone was seen in the distal ureter was broken up with laser and then removed with nitinol basket and pieces. We repeated ureteroscopy up to the vessels on this side. There were no other stones seen. We replaced over the Guide-wire double-J stent, left the string attached to it. After injecting contrast into the upper, mid and distal ureter and renal caliceal system to document no further evidence of any ureteral stones or obstruction. He was still hydronephrotic on this side. There was no extravasation. The left side was then done in the same manner. Ureteroscopy No stones were seen on this side. This probably on relationship either to his inability to empty his bladder and bladder distention or 3 prostate cancer and I think it more likely it is related to prostate cancer invading the trigone and ureteral orifice. We did inject contrast up this side also and then replace the stent on this side leaving a string attached to it. At this point, the bladder was drained. A Merida catheter was inserted. It was irrigated, it is light pink in color. It was connected to a drainage bag. He was taken out of dorsal lithotomy position, awakened, extubated, and taken by stretcher to the recovery room. YAMILE
--- NOTE | 2018-10-09 08:54 | PQF ---
[facility] POST DISCHARGE CLINICAL DOCUMENTATION IMPROVEMENT CLARIFICATION FORM l Todays Date: 10/07/18 l Patients Name Tim ROMERO l l Admit Date 10/04/18 l Disch Date 10/04/18 Operations Support Manager Name Ramon Porter Email: [email or web address] Cell: [phone] To be completed by Operations Support Manager: Present Clinical Indicators - Signs / Symptoms Results and Location in Medical Record [ ] Documentation of: [ ] [ ] Documentation of: [ ] [ ] Documentation of: [ ] [ ] Documentation of: [ ] [ ] Risks [ ] [ ] [ ] Treatment [ ] BLADDER CALCULUS QUERY FOR SIZE BLADDER CALCULUS [ ] [ ] To be completed by Physician: RUEL HANNA The documentation in this patients record requires clarification to ensure coding compliance and accuracy. Check the appropriate box and include in your discharge summary. [ ] [ ] [ ] [ ] Please check this box if this does not apply to this patient [ ] Unable to determine [ ] Other diagnosis: Review the following information and exercise your independent professional judgment in responding to the clarification. Based upon the clinical findings, risk factors, and treatment, please clarify if you are treating one of the above probable or suspected diagnoses. Physician Signature: Date Time MTDD
[2018-10-11 13:17] LABS: CA Oxalate Monohydrate 90 % (.); Color Brown (.); Stone Weight 388.7 mg (.)
== END 2018-10-04 13:40 | disposition home or self-care (01) ==
LOC: SDC 06:47
PROVIDERS: ATTEND Urology
PROC: 0TC68ZZ Extirpation of Matter from Right Ureter, Via Natural or Artificial Opening Endoscopic (ICD-10-PCS; principal; 2018-10-04)
PROC: 0T788DZ Dilation of Bilateral Ureters with Intraluminal Device, Via Natural or Artificial Opening Endoscopic (ICD-10-PCS; principal; 2018-10-04)
PROC: 0TCB8ZZ Extirpation of Matter from Bladder, Via Natural or Artificial Opening Endoscopic (ICD-10-PCS; principal; 2018-10-04)
DX: N13.2 Hydronephrosis with renal and ureteral calculous obstruction (principal); N21.0 Calculus in bladder; C61 Malignant neoplasm of prostate; Z79.2 Long term (current) use of antibiotics
CPT/HCPCS: 74420; 82365; 88300; C1758; C1769; J1642; J2001; J2405; J2704; J3010; Q9961

== ENCOUNTER 2018-10-16 16:02 | Inpatient (IN) | payer MEDICAID, SELFPAY ==
[2018-10-16 16:38] LABS: Hemoglobin 14.4 g/dL (14.0-18.0); Mean Corpuscular HGB CONC 34.9 g/dL (32.0-36.0); Mean Corpuscular Hemoglobin 30.7 pg (27.0-31.0); Mean Platelet Volume 7.9 fL (7.4-10.4); Platelet Count 202 thou/uL (130-400); RBC Distribution Width 12.9 % (11.5-14.5); Red Blood Cell (RBC) Count 4.69 mill/uL (4.70-6.10); White Blood Cell (WBC) Count 17.6 thou/uL (4.8-10.8)
[2018-10-16 16:52] LABS: Bilirubin Negative (Negative); Blood, Urine Trace (Negative); Clarity CLOUDY (Clear); Glucose, Urine (Dipstick) Negative (Negative); Leukocyte Large (Negative); Nitrite Positive (Negative); Protein, Urine (Dipstick) 30 mg/dL (Neg-Trace); Specific Gravity, Urine 1.018 (1.002-1.036); Urobilinogen 0.2 mg/dL (0.2-1.0); pH, Urine 6.5 (5.0-9.0)
[2018-10-16 16:55] LABS: Band 14 % (5-11); Lymphocytes 1 % (21-51); MDiff Complete? YES; Monocytes 1 % (0-10); Neutrophil 83 % (42-75); PLT Morphology Comment Appears Adequate; RBC Morphology Normal; Reactive Lymphocytes 1 % (0-10)
[2018-10-16 16:56] LABS: Bacteria/HPF 3+ HPF (None Seen); Hyaline Casts/LPF 0-3 HYALINE CAST LPF (0-3 Hyaline); Squamous Epithelial None Seen HPF (0-3)
--- NOTE | 2018-10-16 16:58 | RAD ---
FRONTAL RADIOGRAPH CHEST: Date: 10/16/18 COMPARISON: 09/01/18. HISTORY: Prostate cancer, difficult to arouse, fever. FINDINGS: Heart and mediastinal contours appear within normal limits. No pneumothorax, pleural fluid, focal con solidation, or alveolar edema. IMPRESSION: No acute findings. POS: [facility]
[2018-10-16 17:03] LABS: ALT (SGPT) 13 U/L (8-55); AST (SGOT) 18 U/L (5-34); Albumin 4.1 g/dL (3.4-4.8); Alkaline Phosphatase 78 U/L (40-150); Anion Gap 15 mmol/L (10-20); BUN (Urea Nitrogen) 27 mg/dL (8.4-25.7); Bilirubin, Total 1.4 mg/dL (0.2-1.2); CK (CPK) 38 U/L (30-200); Calc. Creatinine Clearance 0 mL/min (70-130); Calcium 9.5 mg/dL (7.8-10.44); Carbon Dioxide 20 mmol/L (23-31); Chloride 103 mmol/L (98-107); Estimated GFR-MDRD 30; Globulin 3.6 g/dL (2.4-3.5); Glucose 126 mg/dL (80-115); Lipase 34 U/L (8-78); Potassium 3.6 mmol/L (3.5-5.1); Protein, Total 7.7 g/dL (5.8-8.1); Sodium 134 mmol/L (136-145)
[2018-10-16 17:05] LABS: CKMB 0.1 ng/mL (0-6.6); Troponin I Less than 0.010 ng/mL (< 0.028)
[2018-10-16] MEDS ORDERED: Acetaminophen 500 MG TAB ONE ×2 (17:09→21:11)
[2018-10-16] MEDS ORDERED: Cefepime 2 GM in Sodium Chloride 0.9% 100 ML IVPB ONE (17:30)
--- NOTE | 2018-10-16 18:35 | CT ---
CT BRAIN NONCONTRAST: HISTORY: 68-year-old male with altered mental status. FINDINGS: There is no midline shift or any other mass effect. There is no evidence of acute intracranial hemor rhage, large cortical infarct, obstructive hydrocephalus, or extraaxial fluid collection. The calvar ium is intact. IMPRESSION: No acute intracranial findings. jn [] POS: [facility]
[2018-10-16] MEDS ORDERED: Acetaminophen 650 MG Suppository PR PRN (21:18)
[2018-10-16] MEDS ORDERED: Bisacodyl 5 MG TAB PO PRN (21:18)
[2018-10-16] MEDS ORDERED: Senokot S 8.6-50 MG TAB PO PRN (21:18)
[2018-10-16] MEDS ORDERED: Ondansetron PF 4 MG/2 ML Vial IVP PRN (21:18)
[2018-10-16] MEDS ORDERED: Ondansetron ODT 4 MG TAB PO PRN (21:18)
[2018-10-16] MEDS ORDERED: Zolpidem Tartrate 5 MG TAB PO PRN (21:18)
[2018-10-16] MEDS ORDERED: Sodium Chloride 0.9% 1,000 ML IV SCH (21:30)
[2018-10-17 02:30] VITALS: BMI 29.1
[2018-10-17] MEDS: Acetaminophen 325 MG TAB PO PRN ×2 (03:14→17:47)
[2018-10-17 04:46] LABS: Anion Gap 13 mmol/L (10-20); BUN (Urea Nitrogen) 26 mg/dL (8.4-25.7); Calc. Creatinine Clearance 34 mL/min (70-130); Calcium 8.6 mg/dL (7.8-10.44); Carbon Dioxide 20 mmol/L (23-31); Chloride 105 mmol/L (98-107); Estimated GFR-MDRD 27; Glucose 105 mg/dL (80-115); Sodium 134 mmol/L (136-145)
[2018-10-17 05:06] LABS: Band 5 % (5-11); Hypochromia SLIGHT = 6-15 cells (100X) (0-5/hpf); Lymphocytes 2 % (21-51); MDiff Complete? YES; Mean Corpuscular HGB CONC 34.6 g/dL (32.0-36.0); Mean Corpuscular Hemoglobin 31.2 pg (27.0-31.0); Mean Corpuscular Volume 90.2 fL (78.0-98.0); Mean Platelet Volume 7.7 fL (7.4-10.4); Monocytes 1 % (0-10); Neutrophil 92 % (42-75); PLT Morphology Comment Appears Adequate; Platelet Count 146 thou/uL (130-400); RBC Distribution Width 12.9 % (11.5-14.5); Red Blood Cell (RBC) Count 4.15 mill/uL (4.70-6.10); White Blood Cell (WBC) Count 11.1 thou/uL (4.8-10.8)
[2018-10-17] MEDS ORDERED: Artificial Tears 18 DROP/0.9 ML EA EYE PRN (07:26)
[2018-10-17] MEDS ORDERED: Loperamide HCl 2 MG CAP PO PRN (07:26)
[2018-10-17] MEDS ORDERED: Eucerin (Mineral Oil/Petrolatum,White) 30 gm Jar TOP PRN (07:26)
[2018-10-17] MEDS ORDERED: Cepastat Lozenges 1 LOZ PO PRN (07:26)
[2018-10-17] MEDS ORDERED: Diabetic Tussin 200 MG/10 ML UDCUP PO PRN (07:26)
[2018-10-17] MEDS ORDERED: Loratadine 10 MG TAB PO PRN (07:26)
[2018-10-17] MEDS ORDERED: hydrALAZINE 20 MG/ML VIAL SLOW IVP PRN (07:26)
[2018-10-17] MEDS ORDERED: Sodium Chloride 0.65% Nasal 44 ML BOT EA NARE PRN (07:26)
[2018-10-17] MEDS ORDERED: VANCOMYCIN IVPB PRN (07:38)
[2018-10-17] MEDS: Sodium Chloride 0.9% 1,000 ML IV SCH ×2 (08:15→15:00)
[2018-10-17] MEDS ORDERED: Prevnar 13-Val Conj/PF 0.5 ML SYRINGE IM ONE (09:00)
[2018-10-17] MEDS ORDERED: cefTRIAXone\\ROCEPHIN 2 GM in Sodium Chloride 0.9% 100 ML IVPB SCH (09:00)
[2018-10-17] MEDS ORDERED: Famotidine/PF 20 mg/2ml Vial SLOW IVP SCH (09:00)
[2018-10-17] MEDS ORDERED: Lactinex Tablet PO SCH (09:00)
[2018-10-17] MEDS: cefTRIAXone\\ROCEPHIN 1 GM in Sodium Chloride 0.9% 100 ML IVPB SCH (09:21)
[2018-10-17] MEDS: Saccharomyces boulardii 250 MG CAP PO SCH (09:22)
[2018-10-17] MEDS: Famotidine 20 MG TAB PO SCH (09:34)
[2018-10-17] MEDS: Heparin 5,000 UNITS/ML VIAL SC SCH ×2 (09:37→20:25)
--- NOTE | 2018-10-17 11:46 | PDOC.PN ---
- Subjective Encounter Start Date: 10/17/18 Encounter Start Time: 08:30 -: old records requested/rev Patient seen and examined. No new complaints. No overnight events - Objective Resuscitation Status - Order Detail: 10/16/18 21:18 Resuscitation Status Routine Resuscitation Status: FULL: Full Resuscitation MAR Reviewed: Yes Vital Signs & Weight: Vital Signs (12 hours) Temp Pulse Resp BP BP Pulse Ox 10/17/18 07:27 97.8 F 82 18 91/56 L 97 10/17/18 05:38 98.8 F 106/69 10/17/18 04:00 101.2 F H 93 20 99/62 97 10/17/18 01:03 99.8 F H 87 16 114/74 96 Weight Weight 185 lb 11.2 oz I&O: 10/16/18 10/17/18 10/18/18 06:59 06:59 06:59 Intake Total 1080 Output Total 600 Balance 480 Result Diagrams: 10/17/18 03:28 10/17/18 03:28 Radiology Reviewed by me: Yes Phys Exam - Physical Examination Constitutional: NAD HEENT: PERRLA, moist MMs, sclera anicteric Neck: no JVD, supple Respiratory: no wheezing, no rales, no rhonchi Cardiovascular: RRR, no significant murmur, no rub Gastrointestinal: soft, non-tender, no distention, positive bowel sounds Musculoskeletal: no edema, pulses present Neurological: non-focal, normal sensation Lymphatic: no nodes Psychiatric: normal affect, A&O x 3 Skin: no rash, normal turgor Dx/Plan (1) Acute worsening of stage 3 chronic kidney disease Code(s): N18.3 - CHRONIC KIDNEY DISEASE, STAGE 3 (MODERATE) Status: Acute (2) Sepsis with acute organ dysfunction Code(s): A41.9 - SEPSIS, UNSPECIFIED ORGANISM; R65.20 - SEVERE SEPSIS WITHOUT SEPTIC SHOCK Status: Acute (3) UTI (urinary tract infection) Status: Acute (4) H/O prostate cancer Code(s): Z85.46 - PERSONAL HISTORY OF MALIGNANT NEOPLASM OF PROSTATE Status: Chronic (5) Bacteremia due to Enterococcus Code(s): R78.81 - BACTEREMIA; B95.2 - ENTEROCOCCUS THE CAUSE OF DISEASES CLASSIFIED ELSEWHERE Status: Acute - Plan cont current plan of care, continue antibiotics * medication reviewed as below * symptomatic treatment * continue IV antibiotics, rocephin, cipro and vancomycin * follow culture * increase IVF * repeat labs tomorrow Review of Systems - Review of Systems ENT: negative: Ear Pain, Ear Discharge, Nose Pain, Nose Discharge, Nose Congestion, Mouth Pain, Mouth Swelling, Throat Pain, Throat Swelling, Other Respiratory: negative: Cough, Dry, Shortness of Breath, Hemoptysis, SOB with Excertion, Pleuritic Pain, Sputum, Wheezing Cardiovascular: negative: chest pain, palpitations, orthopnea, paroxysmal nocturnal dyspnea, edema, light headedness, other Gastrointestinal: negative: Nausea, Vomiting, Abdominal Pain, Diarrhea, Constipation, Melena, Hematochezia, Other Genitourinary: negative: Dysuria, Frequency, Incontinence, Hematuria, Retention , Other Musculoskeletal: negative: Neck Pain, Shoulder Pain, Arm Pain, Back Pain, Hand Pain, Leg Pain, Foot Pain, Other Skin: negative: Rash, Lesions, Matt, Bruising, Other - Medications/Allergies Allergies/Adverse Reactions: Allergies Allergy/AdvReac Type Severity Reaction Status Date / Time No Known Drug Allergies Allergy Verified 10/17/18 01:15 Medications: Current Medications Acetaminophen (Tylenol) 650 mg PO Q4H PRN PRN Reason: Headache/Fever/Mild Pain (1-3) Last Admin: 10/17/18 03:14 Dose: 650 mg Artificial Tears (Tears Naturale) 2 drop EA EYE PRN PRN PRN Reason: Dry Eyes Bisacodyl (Dulcolax) 10 mg PO DAILYPRN PRN PRN Reason: Constipation Famotidine (Pepcid) 20 mg PO QAM [facility] Last Admin: 10/17/18 09:34 Dose: 20 mg Guaifenesin (Robitussin Sf) 200 mg PO Q4H PRN PRN Reason: Cough Heparin Sodium (Porcine) (Heparin) 5,000 units SC BID [facility] Last Admin: 10/17/18 09:37 Dose: Not Given Hydralazine HCl (Apresoline) 10 mg SLOW IVP Q4H PRN PRN Reason: SBP > 180 and HR < 70 Ciprofloxacin/Dextrose 400 mg/ (Device) 200 mls @ 200 mls/hr IVPB Q12HR [facility] Last Admin: 10/17/18 10:46 Dose: 200 mls Ceftriaxone Sodium 1 gm/ (Sodium Chloride) 100 mls @ 200 mls/hr IVPB 0800 [facility] Last Admin: 10/17/18 09:21 Dose: 100 mls Sodium Chloride (Normal Saline 0.9%) 1,000 mls @ 150 mls/hr IV .Q6H40M [facility] Last Admin: 10/17/18 08:15 Dose: 1,000 mls Vancomycin HCl 1 gm/ Device 200 mls @ 200 mls/hr IVPB .PENDING LEVEL [facility] Loperamide HCl (Imodium) 2 mg PO PRN PRN PRN Reason: Diarrhea/Loose Stools Loratadine (Claritin) 10 mg PO DAILYPRN PRN PRN Reason: Sinus Symptoms Mineral Oil/White Petrolatum (Eucerin Cream) 0 gm TOP BIDPRN PRN PRN Reason: Dry Skin Miscellaneous Medication (Pharmacy To Dose) 1 each IVPB PRN PRN PRN Reason: Pharmacy to dose Ondansetron HCl (Zofran Odt) 4 mg PO Q6H PRN PRN Reason: Nausea/Vomiting Ondansetron HCl (Zofran) 4 mg IVP Q6H PRN PRN Reason: Nausea/Vomiting Saccharomyces Boulardii (Florastor) 250 mg PO DAILY [facility] Last Admin: 10/17/18 09:22 Dose: 250 mg Senna/Docusate Sodium (Senokot S) 2 tab PO BIDPRN PRN PRN Reason: Constipation Sodium Chloride (Flush - Normal Saline) 10 ml IVF Q12HR PRN PRN Reason: Saline Flush Sodium Chloride (Flush - Normal Saline) 10 ml IVF PRN PRN PRN Reason: Saline Flush Sodium Chloride ([place] Nasal [place] 0.65%) 0 ml EA NARE QIDPRN PRN PRN Reason: Nasal Congestion Throat Lozenges (Cepastat Lozenges) 1 erica PO Q2H PRN PRN Reason: Sore Throat Zolpidem Tartrate (Ambien) 5 mg PO HSPRN PRN PRN Reason: Insomnia
--- NOTE | 2018-10-17 15:25 | ULT ---
ULTRASOUND RETROPERITONEUM COMPLETE: (RENAL) Date: 10/17/18 HISTORY: 68-year-old male with acute renal failure. FINDINGS: There is now moderate to severe dilation of the right renal collecting system, much worse or new comp ared to the CT of 09/11/18, new or much worse than on the retrograde pyelogram of 09/22/18, and simil ar to the retrograde pyelogram of 10/04/18. There are multiple right renal calculi. One of the larger ones is approximately 1.3 cm in a right hawa al lower pole danielle. There is an approximately 2.5 cm exophytic cyst protruding from the lower pole c ortex of the right kidney. The right kidney measures approximately 12 x 6.5 x 7 cm. There is a dilated left extrarenal pelvis. There is no moderate or severe left renal caliceal dilatio n, but the left kidney is poorly visualized because of shadowing from adjacent bowel gas obscuring th e mid and upper poles. Therefore, the left renal measurements are imprecise. The left kidney measures approximately 12 x 5 x 5.5 cm. No obvious calculus is visualized in the left kidney. The urinary bladder contains a Merida catheter balloon, but it is not empty. It has a volume of approx imately 35 mL. Bladder javier are diffusely thickened up to approximately 0.8 cm. IMPRESSION: 1. Moderate to severe right hydronephrosis representing right obstructive uropathy, new since , and similar to 10/04/18. 2. Nephrolithiasis consisting of numerous right renal calculi. 3. Right renal lower pole exophytic cyst. 4. No hydronephrosis of left kidney. 5. Diffuse mural thickening of the bladder consistent with cystitis. Uncertain whether chronic or ac jenn. 6. The urinary bladder is not empty, despite the presence of a Merida catheter. JN R POS: [facility]
[2018-10-17 16:22] LABS: Vancomycin, Random 6.3 ug/mL (See Comment)
[2018-10-17] MEDS ORDERED: Vancomycin HCl 1 GM in Premix Bag 1 BAG IVPB SCH (17:00)
--- NOTE | 2018-10-17 22:57 | CON ---
DATE OF CONSULTATION: HISTORY OF PRESENT ILLNESS: Mr. Hamilton is a 68-year-old male, who was admitted for a possible urosepsis. We have been consulted for his acute kidney injury. He is now empirically being treated with IV antibiotics. Please note, he also has a recent history of bilateral hydronephrosis and has undergone cystoscopy with bilateral ureteral stent placement with Dr. Sanabria. We are now consulted for management of this acute kidney injury. His most recent creatinine was noted at 2.4, and back on September 22, this was 1.34. REVIEW OF SYSTEMS: Positive for generalized malaise. Positive for dysuria. No syncopal episode. No productive cough. Decreased energy level and decreased appetite. No headache. No diplopia. No sore throat. No hematochezia. No melena. No hematemesis. No abdominal pain. No diplopia. MEDICATIONS: Currently on Dulcolax p.r.n., ceftriaxone 1 g IV daily, Cipro 400 mg q.12, Pepcid 20 mg q.a.m., heparin 5000 units subcu b.i.d., Zofran 4 mg q.6h p.r.n., Florastor 250 mg daily, normal saline at 100 mL per hour, vancomycin 1 g daily depending on vancomycin levels. PAST MEDICAL HISTORY: 1. History of bilateral hydronephrosis. 2. History of prostate cancer. 3. Nephrolithiasis. PAST SURGICAL HISTORY: Status post prostate biopsy, status post cystoscopy, status post lithotripsy, status post bilateral ureteral stent placement, status post retrograde pyelography. SOCIAL HISTORY: The patient originally from [place], he lives in [place] with his [id number]. He is , several children. Currently, no smoking. No alcohol. No IV drug abuse. He works as a day airport maintenance laborer. FAMILY HISTORY: No family history of ESRD. PHYSICAL EXAMINATION: VITAL SIGNS: Blood pressure is 91/56, heart rate 82, respiratory rate is 18, temperature 97.8, pulse ox 97%. GENERAL: Noted to be awake, supine, lethargic, not in overt distress. SKIN: Adequate turgor. HEENT: He has pinkish conjunctivae, anicteric sclerae. NECK: No neck mass. No carotid bruits. No JVD. CHEST: No deformities. LUNGS: Clear breath sounds. No wheezing or crackles. HEART: Normal sinus rhythm. No murmurs, gallops, or rubs. ABDOMEN: Globular, soft, and nontender. No masses. EXTREMITIES: No edema. No deformities. NEUROLOGICAL: Awake and oriented to 3 spheres. Moving all extremities. No tremors. No asterixis. No ataxia. LABORATORY DATA: Urinalysis of October 16, 2018; specific gravity of 1.018, protein is 30, wbc's greater than 50, rbc's 4 to 6, no pigmented granular cast. On October 17, 2018; sodium 134, potassium 4, chloride 105, carbon dioxide 20, BUN 26, creatinine 2.42. On October 16, 2018; BUN 27, creatinine 2.19. On September 22, 2018; creatinine 1.34. Troponin I less than 0.010. Renal ultrasound on October 17, 2018, shows findings of [id number] right hydronephrosis and similar findings as of October 04, 2018. There is no hydronephrosis of the left kidney. Chest x-ray of October 16, 2018, clear, no infiltrates. CT scan of the brain, no acute intracranial abnormality. ASSESSMENT AND PLAN: 1. Acute kidney injury on top of possible chronic renal failure-consider hemodynamically mediated venous function. Please note, the patient is noted to be hypotensive and septic. Agree with empiric volume repletion. He was given a challenge of 1 L of normal saline early today. I would suggest we continue to maintain normal saline at the planned 100 to 125 mL/h. There is no indication for any acute dialytic intervention with this patient at the moment. 2. Chronic obstructive uropathy-Urology has evaluated this patient. He has undergone a bilateral ureteral stent placement with Dr. Sanabria. 3. Urosepsis-on empiric IV antibiotics. Case discussed with the patient's [id number]. Continue current management. Recheck basic metabolic panel and CBC in the a.m. Job ID: [id number]
[2018-10-18] MEDS: Sodium Chloride 0.9% 1,000 ML IV SCH ×4 (00:42→21:45)
[2018-10-18 06:41] LABS: #Lymphocytes 0.7 thou/uL (1.20-3.40); #Monocytes 0.5 thou/uL (0.11-0.59); #Neutrophils 8.1 thou/uL (1.40-6.50); %Basophils 0.3 % (0.0-1.0); %Eosinophils 0.3 % (0.0-10.0); %Lymphocytes 6.9 % (21.0-51.0); %Monocytes 5.8 % (0.0-10.0); %Neutrophils 86.7 % (42.0-75.0); Hemoglobin 11.8 g/dL (14.0-18.0); Mean Corpuscular HGB CONC 34.4 g/dL (32.0-36.0); Mean Corpuscular Volume 90.2 fL (78.0-98.0); Mean Platelet Volume 8.4 fL (7.4-10.4); Platelet Count 123 thou/uL (130-400); RBC Distribution Width 12.8 % (11.5-14.5); Red Blood Cell (RBC) Count 3.81 mill/uL (4.70-6.10); White Blood Cell (WBC) Count 9.4 thou/uL (4.8-10.8)
[2018-10-18 07:02] LABS: Anion Gap 10 mmol/L (10-20); BUN (Urea Nitrogen) 27 mg/dL (8.4-25.7); Calc. Creatinine Clearance 41 mL/min (70-130); Calcium 8.3 mg/dL (7.8-10.44); Carbon Dioxide 21 mmol/L (23-31); Chloride 109 mmol/L (98-107); Estimated GFR-MDRD 33; Glucose 95 mg/dL (80-115); Potassium 3.8 mmol/L (3.5-5.1); Sodium 136 mmol/L (136-145)
[2018-10-18] MEDS: Famotidine 20 MG TAB PO SCH (07:18)
[2018-10-18] MEDS: Saccharomyces boulardii 250 MG CAP PO SCH (07:18)
[2018-10-18] MEDS: Heparin 5,000 UNITS/ML VIAL SC SCH ×2 (07:18→21:43)
[2018-10-18] MEDS: cefTRIAXone\\ROCEPHIN 1 GM in Sodium Chloride 0.9% 100 ML IVPB SCH (07:29)
--- NOTE | 2018-10-18 09:50 | PDOC.PN ---
- Subjective Encounter Start Date: 10/18/18 Encounter Start Time: 08:30 Patient seen and examined. No new complaints. No overnight events no fever today, renal function better today - Objective Resuscitation Status - Order Detail: 10/16/18 21:18 Resuscitation Status Routine Resuscitation Status: FULL: Full Resuscitation MAR Reviewed: Yes Vital Signs & Weight: Vital Signs (12 hours) Temp Pulse Resp BP Pulse Ox 10/18/18 07:56 98.9 F 59 L 16 122/70 96 10/18/18 04:00 98.3 F 65 20 135/86 98 10/18/18 00:00 97.4 F L 61 20 108/69 99 Weight Weight 185 lb 11.2 oz I&O: 10/17/18 10/18/18 10/19/18 06:59 06:59 06:59 Intake Total 1080 Output Total 600 1400 Balance 480 -1400 Result Diagrams: 10/18/18 06:02 10/18/18 06:02 Phys Exam - Physical Examination Constitutional: NAD HEENT: PERRLA, moist MMs, sclera anicteric Neck: no JVD, supple Respiratory: no wheezing, no rales, no rhonchi Cardiovascular: RRR, no significant murmur, no rub Gastrointestinal: soft, non-tender, no distention, positive bowel sounds Musculoskeletal: no edema, pulses present Neurological: non-focal, normal sensation Lymphatic: no nodes Psychiatric: normal affect, A&O x 3 Skin: no rash, normal turgor Dx/Plan (1) Acute worsening of stage 3 chronic kidney disease Code(s): N18.3 - CHRONIC KIDNEY DISEASE, STAGE 3 (MODERATE) Status: Acute (2) Sepsis with acute organ dysfunction Code(s): A41.9 - SEPSIS, UNSPECIFIED ORGANISM; R65.20 - SEVERE SEPSIS WITHOUT SEPTIC SHOCK Status: Acute (3) UTI (urinary tract infection) Status: Acute (4) H/O prostate cancer Code(s): Z85.46 - PERSONAL HISTORY OF MALIGNANT NEOPLASM OF PROSTATE Status: Chronic (5) Bacteremia due to Enterococcus Code(s): R78.81 - BACTEREMIA; B95.2 - ENTEROCOCCUS THE CAUSE OF DISEASES CLASSIFIED ELSEWHERE Status: Acute (6) Hydronephrosis, right Code(s): N13.30 - UNSPECIFIED HYDRONEPHROSIS Status: Chronic (7) Nephrolithiasis Status: Chronic (8) Obstructive uropathy Code(s): N13.9 - OBSTRUCTIVE AND REFLUX UROPATHY, UNSPECIFIED Status: Chronic - Plan cont current plan of care, continue antibiotics, PT/OT * continue cipro, rocephin and vancomycin * follow culture * spoke with urology about pt * medication reviewed as below * symptomatic treatment * renal function improving. * start PT * for his metastatic prostate cancer, he either needs lupron vs orchectomy Review of Systems - Review of Systems ENT: negative: Ear Pain, Ear Discharge, Nose Pain, Nose Discharge, Nose Congestion, Mouth Pain, Mouth Swelling, Throat Pain, Throat Swelling, Other Respiratory: negative: Cough, Dry, Shortness of Breath, Hemoptysis, SOB with Excertion, Pleuritic Pain, Sputum, Wheezing Cardiovascular: negative: chest pain, palpitations, orthopnea, paroxysmal nocturnal dyspnea, edema, light headedness, other Gastrointestinal: negative: Nausea, Vomiting, Abdominal Pain, Diarrhea, Constipation, Melena, Hematochezia, Other Genitourinary: negative: Dysuria, Frequency, Incontinence, Hematuria, Retention , Other Musculoskeletal: negative: Neck Pain, Shoulder Pain, Arm Pain, Back Pain, Hand Pain, Leg Pain, Foot Pain, Other - Medications/Allergies Allergies/Adverse Reactions: Allergies Allergy/AdvReac Type Severity Reaction Status Date / Time No Known Drug Allergies Allergy Verified 10/17/18 01:15 Medications: Current Medications Acetaminophen (Tylenol) 650 mg PO Q4H PRN PRN Reason: Headache/Fever/Mild Pain (1-3) Last Admin: 10/17/18 17:47 Dose: 650 mg Artificial Tears (Tears Naturale) 2 drop EA EYE PRN PRN PRN Reason: Dry Eyes Bisacodyl (Dulcolax) 10 mg PO DAILYPRN PRN PRN Reason: Constipation Famotidine (Pepcid) 20 mg PO QAM [facility] Last Admin: 10/18/18 07:18 Dose: Not Given Guaifenesin (Robitussin Sf) 200 mg PO Q4H PRN PRN Reason: Cough Heparin Sodium (Porcine) (Heparin) 5,000 units SC BID [facility] Last Admin: 10/18/18 07:18 Dose: Not Given Hydralazine HCl (Apresoline) 10 mg SLOW IVP Q4H PRN PRN Reason: SBP > 180 and HR < 70 Ciprofloxacin/Dextrose 400 mg/ (Device) 200 mls @ 200 mls/hr IVPB Q12HR [facility] Last Admin: 10/17/18 20:24 Dose: 200 mls Ceftriaxone Sodium 1 gm/ (Sodium Chloride) 100 mls @ 200 mls/hr IVPB 0800 [facility] Last Admin: 10/18/18 07:29 Dose: 100 mls Sodium Chloride (Normal Saline 0.9%) 1,000 mls @ 100 mls/hr IV .Q10H [facility] Last Admin: 10/18/18 07:29 Dose: 1,000 mls Vancomycin HCl 1 gm/ Device 200 mls @ 200 mls/hr IVPB Q24HR@1700 [facility] Last Admin: 10/17/18 17:47 Dose: 200 mls Loperamide HCl (Imodium) 2 mg PO PRN PRN PRN Reason: Diarrhea/Loose Stools Loratadine (Claritin) 10 mg PO DAILYPRN PRN PRN Reason: Sinus Symptoms Mineral Oil/White Petrolatum (Eucerin Cream) 0 gm TOP BIDPRN PRN PRN Reason: Dry Skin Miscellaneous Medication (Pharmacy To Dose) 1 each IVPB PRN PRN PRN Reason: Pharmacy to dose Ondansetron HCl (Zofran Odt) 4 mg PO Q6H PRN PRN Reason: Nausea/Vomiting Ondansetron HCl (Zofran) 4 mg IVP Q6H PRN PRN Reason: Nausea/Vomiting Saccharomyces Boulardii (Florastor) 250 mg PO DAILY [facility] Last Admin: 10/18/18 07:18 Dose: Not Given Senna/Docusate Sodium (Senokot S) 2 tab PO BIDPRN PRN PRN Reason: Constipation Sodium Chloride (Flush - Normal Saline) 10 ml IVF Q12HR PRN PRN Reason: Saline Flush Sodium Chloride (Flush - Normal Saline) 10 ml IVF PRN PRN PRN Reason: Saline Flush Sodium Chloride ([place] Nasal [place] 0.65%) 0 ml EA NARE QIDPRN PRN PRN Reason: Nasal Congestion Throat Lozenges (Cepastat Lozenges) 1 erica PO Q2H PRN PRN Reason: Sore Throat Zolpidem Tartrate (Ambien) 5 mg PO HSPRN PRN PRN Reason: Insomnia
--- NOTE | 2018-10-18 11:07 | PRG ---
DATE OF SERVICE: 10/18/2018 SUBJECTIVE: Mr. Noa Hamilton is a 68-year-old male, who was seen for his acute kidney injury with a creatinine that peaked at 2.42. He was given IV hydration and creatinine is now slightly improved at 2.02. He has also history of chronic obstructive uropathy and has had a ureteral stent placed. He also came for sepsis syndrome. This morning, he is feeling better. He is on empiric IV antibiotics. OBJECTIVE: VITAL SIGNS: Blood pressure 122/70, heart rate 59, respiratory rate 16, temperature 98.9, pulse ox 96%. GENERAL: Awake, alert, comfortable, not in distress. SKIN: Adequate turgor. HEENT: He has pinkish conjunctivae, anicteric sclerae. No neck mass. No carotid bruits. No JVD. CHEST: No deformities. LUNGS: Clear breath sounds. No wheezing. No crackles. HEART: Normal sinus rhythm. No murmur. No gallops. No rubs. ABDOMEN: Globular, soft, and nontender. No masses. EXTREMITIES: No edema. No deformities. MEDICATIONS: Medications of October 18, 2018, reviewed. LABORATORY DATA: Laboratories of October 18, 2018, white count 9.4, hemoglobin 11.8. Sodium 136, potassium 3.8, chloride 109, carbon dioxide 21, BUN 27, creatinine 2.02, glucose 95, and calcium 8.3. ASSESSMENT AND PLAN: 1. Acute kidney injury - consider hemodynamically mediated renal dysfunction. Improving renal function with IV hydration. No indication for any dialytic intervention. 2. Chronic obstructive uropathy, status post ureteral stent placement. 3. Sepsis. The patient currently on IV antibiotics. Agree with current management. Job ID: [id number]
--- NOTE | 2018-10-18 15:16 | CON ---
DATE OF CONSULTATION: 10/17/2018 HISTORY OF PRESENT ILLNESS: This is a 68-year-old male, who speaks [place] only, who I have been caring for last few weeks. He had had a history of recurrent episodes of urinary retention and had been in emergency rooms, having catheters placed and then removed. Most recently, he had come in to [facility], and they sent him to see me. I saw him, did an exam on him, looked at his lab work. His creatinine was elevated, I think in the 2.5 range. He had a rock-hard prostate. We did a PSA on him, it was over 80. Did a prostate biopsy on him, and he was found to have prostate cancer. The biopsy was done on 29 of August, and it showed a Matthews 4+3, so he has bilateral Tomas 4+3 disease that feels to be extending well outside of the prostate. He had a bone scan done on the 11 of September that showed nonspecific areas of uptake above the left superior orbit. CAT scan for that has been recommended; I have not done that as I do not think it would really add much to his workup. On that CAT scan though, he was found to have bilateral renal stones, bilateral renal cysts, bladder calculi, bilateral hydronephrosis, and the possibility of bilateral ureteral stones, and probable right ureteral stone. In addition to this, he also had a significantly resistant bacterial infection that he required daily Invanz for that he finished a week or so ago. I had a long discussion with him and his brother and his sister regarding the findings. I indicated that he has locally aggressive prostate cancer, possibly metastatic, although it did not show up to be metastatic yet on bone scan or CAT scan, but it is certainly locally advanced. We talked about doing bilateral scrotal orchiectomies as a means to get control of this, and if he had good result with it, he could have in addition down the road a consideration for radiation for local disease. He has however refused this. The other option would be Lupron therapy, which would give him the exact same side effects of bilateral scrotal orchiectomies, but without the surgery, and he probably would be interested in this. The problem is that these shots are expensive and can only be delivered in my office, and he at this point cannot afford them. In any event, after refusal of the orchiectomy, we did proceed on to treat the bladder stones and to look up both ureters. He did have a stone in the right ureter that we were able to break up and remove. He did not have a stone in the left ureter, so the hydronephrosis on the left side is not related to his stone, but it is most likely related to prostatic cancer invading the trigone. I suspect also it is invading the right side of the trigone also. He had stents left in and a Merida catheter left in after this surgery, and his creatinine came down, I think, in the mid 1 range, so it has improved greatly. I saw him back in the office a week or so ago, and at that point, discussed with him again doing scrotal orchiectomy, and with him and his family translating, he again has refused this despite my encouragement and despite his family's encouragement for him to do this. His plan at that point in time was to return to [place] for treatment. At that point, we removed his stents and removed his Merida Catheter, and we taught him to do intermittent self-catheterization, which he should be doing 5 times a day. His sister had called yesterday stating that he is having some back pain, but no fever, and I indicated it may well be that his back pain is related to hydronephrosis recurring after the stents were placed as cause from his prostate cancer causing ureteral obstruction, and I indicated that again scrotal orchiectomy could probably help with this. He was admitted yesterday in the evening with fever and chills that looks like he is growing Enterococcus in the blood. His urine cultures are pending. He currently has a Merida catheter in. Creatinine was up in the mid 2 range. He did have a fever today, although he has been afebrile since this morning. In this patient, it is confusing and somewhat difficult problem he has no finances. We have been able to treat the bladder stones and the right ureteral stone; however, he still has bilateral hydro, and in fact, ultrasound done today shows worse hydro on the right side than he had, which would suggest again not stone causing it at this point, but again, prostate cancer starting to occlude both ureters. I think that the best treatment for him would either be scrotal orchiectomy or to be able to start Lupron. I do not know if they are any finances available through [facility] or through [facility] that would allow him to be treated, but I did talk with Dr. Dean to see if he could look into this and see if he had any thoughts related to it. We could pass stents, would require another anesthetic, or we could even have Radiology place percutaneous nephrostomy tubes. These would be temporary measures to help improve his kidney function, but again we are not doing anything to actually correct the cause of the kidney dysfunction, which again is his prostate cancer. Until he is willing to look at getting this treated or until he is able to get this treated financially, he is in somewhat of a predicament. He currently again has a Merida catheter in, which is not probably going to significantly improve his kidney function as I do not think his outlet obstruction is what is causing it, and I think it is actually related probably to ureteral obstruction now, although he is still making urine. In any event, we will along with you. We will see what his creatinine does with hydration and with treating this infection. He certainly is already feeling better than he was yesterday. These are good signs, and if he is truly planning on and able to get to [place] to get help, that would also be an option for him. I am a bit reluctant to place stents or nephrostomy tubes if we do not know that this patient is going to seek followup. Job ID: [id number]
[2018-10-18 16:38] LABS: Vancomycin, Trough 8.4 ug/mL
[2018-10-18] MEDS: Vancomycin HCl 1.5 GM in Sodium Chloride 0.9% 250 ML 300 ML IVPB SCH (17:31)
[2018-10-19] MEDS: cefTRIAXone\\ROCEPHIN 1 GM in Sodium Chloride 0.9% 100 ML IVPB SCH (08:43)
[2018-10-19] MEDS: Famotidine 20 MG TAB PO SCH (08:44)
[2018-10-19] MEDS: Heparin 5,000 UNITS/ML VIAL SC SCH ×2 (08:44→21:31)
[2018-10-19] MEDS: Saccharomyces boulardii 250 MG CAP PO SCH (08:44)
[2018-10-19 08:49] LABS: #Eosinphils 0.1 thou/uL (0.0-0.7); #Lymphocytes 0.8 thou/uL (1.20-3.40); #Monocytes 0.5 thou/uL (0.11-0.59); %Basophils 0.3 % (0.0-1.0); %Eosinophils 1.5 % (0.0-10.0); %Lymphocytes 12.8 % (21.0-51.0); %Neutrophils 78.4 % (42.0-75.0); Hemoglobin 12.2 g/dL (14.0-18.0); Mean Corpuscular HGB CONC 34.4 g/dL (32.0-36.0); Mean Corpuscular Hemoglobin 30.9 pg (27.0-31.0); Mean Platelet Volume 8.1 fL (7.4-10.4); Platelet Count 157 thou/uL (130-400); RBC Distribution Width 12.7 % (11.5-14.5); Red Blood Cell (RBC) Count 3.93 mill/uL (4.70-6.10); White Blood Cell (WBC) Count 6.4 thou/uL (4.8-10.8)
[2018-10-19 09:07] LABS: ALT (SGPT) 12 U/L (8-55); AST (SGOT) 16 U/L (5-34); Albumin 3.4 g/dL (3.4-4.8); Alkaline Phosphatase 59 U/L (40-150); Anion Gap 13 mmol/L (10-20); BUN (Urea Nitrogen) 21 mg/dL (8.4-25.7); Bilirubin, Total 0.7 mg/dL (0.2-1.2); Calc. Creatinine Clearance 45 mL/min (70-130); Calcium 8.7 mg/dL (7.8-10.44); Carbon Dioxide 20 mmol/L (23-31); Chloride 107 mmol/L (98-107); Estimated GFR-MDRD 37; Globulin 3.4 g/dL (2.4-3.5); Glucose 100 mg/dL (80-115); Potassium 3.6 mmol/L (3.5-5.1); Protein, Total 6.8 g/dL (5.8-8.1); Sodium 136 mmol/L (136-145)
--- NOTE | 2018-10-19 10:16 | PDOC.PN ---
- Subjective Encounter Start Date: 10/19/18 Encounter Start Time: 09:15 Patient seen and examined. No new complaints. No overnight events - Objective Resuscitation Status - Order Detail: 10/16/18 21:18 Resuscitation Status Routine Resuscitation Status: FULL: Full Resuscitation MAR Reviewed: Yes Vital Signs & Weight: Vital Signs (12 hours) Temp Pulse Resp BP Pulse Ox 10/19/18 08:24 98.6 F 62 18 142/84 H 95 10/19/18 04:44 98.0 F 64 16 138/86 97 10/19/18 00:52 98.9 F 63 16 132/82 97 Weight Weight 185 lb 11.2 oz I&O: 10/18/18 10/19/18 10/20/18 06:59 06:59 06:59 Intake Total 1680 Output Total 1400 2075 Balance -1400 -395 Result Diagrams: 10/19/18 08:10 10/19/18 08:10 Phys Exam - Physical Examination Constitutional: NAD HEENT: PERRLA, moist MMs, sclera anicteric Neck: no JVD, supple Respiratory: no wheezing, no rales, no rhonchi Cardiovascular: RRR, no significant murmur, no rub Gastrointestinal: soft, non-tender, no distention, positive bowel sounds Musculoskeletal: no edema, pulses present Neurological: non-focal, normal sensation Lymphatic: no nodes Psychiatric: normal affect, A&O x 3 Skin: no rash, normal turgor Dx/Plan (1) Acute worsening of stage 3 chronic kidney disease Code(s): N18.3 - CHRONIC KIDNEY DISEASE, STAGE 3 (MODERATE) Status: Acute (2) Sepsis with acute organ dysfunction Code(s): A41.9 - SEPSIS, UNSPECIFIED ORGANISM; R65.20 - SEVERE SEPSIS WITHOUT SEPTIC SHOCK Status: Acute (3) UTI (urinary tract infection) Status: Acute (4) H/O prostate cancer Code(s): Z85.46 - PERSONAL HISTORY OF MALIGNANT NEOPLASM OF PROSTATE Status: Chronic (5) Bacteremia due to Enterococcus Code(s): R78.81 - BACTEREMIA; B95.2 - ENTEROCOCCUS THE CAUSE OF DISEASES CLASSIFIED ELSEWHERE Status: Acute (6) Hydronephrosis, right Code(s): N13.30 - UNSPECIFIED HYDRONEPHROSIS Status: Chronic (7) Nephrolithiasis Status: Chronic (8) Obstructive uropathy Code(s): N13.9 - OBSTRUCTIVE AND REFLUX UROPATHY, UNSPECIFIED Status: Chronic - Plan cont current plan of care, continue antibiotics * medication reviewed as below * symptomatic treatment * renal function continue to improve * await sensitivity result * pt decided to get further treatment in [place] after discharge. Review of Systems - Review of Systems ENT: negative: Ear Pain, Ear Discharge, Nose Pain, Nose Discharge, Nose Congestion, Mouth Pain, Mouth Swelling, Throat Pain, Throat Swelling, Other Respiratory: negative: Cough, Dry, Shortness of Breath, Hemoptysis, SOB with Excertion, Pleuritic Pain, Sputum, Wheezing Cardiovascular: negative: chest pain, palpitations, orthopnea, paroxysmal nocturnal dyspnea, edema, light headedness, other Gastrointestinal: negative: Nausea, Vomiting, Abdominal Pain, Diarrhea, Constipation, Melena, Hematochezia, Other Genitourinary: negative: Dysuria, Frequency, Incontinence, Hematuria, Retention , Other Musculoskeletal: negative: Neck Pain, Shoulder Pain, Arm Pain, Back Pain, Hand Pain, Leg Pain, Foot Pain, Other Skin: negative: Rash, Lesions, Matt, Bruising, Other - Medications/Allergies Allergies/Adverse Reactions: Allergies Allergy/AdvReac Type Severity Reaction Status Date / Time No Known Drug Allergies Allergy Verified 10/17/18 01:15 Medications: Current Medications Acetaminophen (Tylenol) 650 mg PO Q4H PRN PRN Reason: Headache/Fever/Mild Pain (1-3) Last Admin: 10/17/18 17:47 Dose: 650 mg Artificial Tears (Tears Naturale) 2 drop EA EYE PRN PRN PRN Reason: Dry Eyes Bisacodyl (Dulcolax) 10 mg PO DAILYPRN PRN PRN Reason: Constipation Famotidine (Pepcid) 20 mg PO QAM [facility] Last Admin: 10/19/18 08:44 Dose: 20 mg Guaifenesin (Robitussin Sf) 200 mg PO Q4H PRN PRN Reason: Cough Heparin Sodium (Porcine) (Heparin) 5,000 units SC BID [facility] Last Admin: 10/19/18 08:44 Dose: Not Given Hydralazine HCl (Apresoline) 10 mg SLOW IVP Q4H PRN PRN Reason: SBP > 180 and HR < 70 Ciprofloxacin/Dextrose 400 mg/ (Device) 200 mls @ 200 mls/hr IVPB Q12HR [facility] Last Admin: 10/19/18 08:43 Dose: 200 mls Ceftriaxone Sodium 1 gm/ (Sodium Chloride) 100 mls @ 200 mls/hr IVPB 0800 [facility] Last Admin: 10/19/18 08:43 Dose: 100 mls Sodium Chloride (Normal Saline 0.9%) 1,000 mls @ 100 mls/hr IV .Q10H [facility] Last Admin: 10/18/18 21:45 Dose: 1,000 mls Vancomycin HCl 1.5 gm/ Sodium (Chloride) 300 mls @ 200 mls/hr IVPB Q24HR@1700 [facility] Last Admin: 10/18/18 17:31 Dose: 300 mls Loperamide HCl (Imodium) 2 mg PO PRN PRN PRN Reason: Diarrhea/Loose Stools Loratadine (Claritin) 10 mg PO DAILYPRN PRN PRN Reason: Sinus Symptoms Mineral Oil/White Petrolatum (Eucerin Cream) 0 gm TOP BIDPRN PRN PRN Reason: Dry Skin Miscellaneous Medication (Pharmacy To Dose) 1 each IVPB PRN PRN PRN Reason: Pharmacy to dose Ondansetron HCl (Zofran Odt) 4 mg PO Q6H PRN PRN Reason: Nausea/Vomiting Ondansetron HCl (Zofran) 4 mg IVP Q6H PRN PRN Reason: Nausea/Vomiting Saccharomyces Boulardii (Florastor) 250 mg PO DAILY [facility] Last Admin: 10/19/18 08:44 Dose: 250 mg Senna/Docusate Sodium (Senokot S) 2 tab PO BIDPRN PRN PRN Reason: Constipation Sodium Chloride (Flush - Normal Saline) 10 ml IVF Q12HR PRN PRN Reason: Saline Flush Sodium Chloride (Flush - Normal Saline) 10 ml IVF PRN PRN PRN Reason: Saline Flush Sodium Chloride ([place] Nasal [place] 0.65%) 0 ml EA NARE QIDPRN PRN PRN Reason: Nasal Congestion Throat Lozenges (Cepastat Lozenges) 1 erica PO Q2H PRN PRN Reason: Sore Throat Zolpidem Tartrate (Ambien) 5 mg PO HSPRN PRN PRN Reason: Insomnia
--- NOTE | 2018-10-19 11:29 | PRG ---
DATE OF SERVICE: 10/19/2018 SUBJECTIVE: Mr. Hamilton is a 68-year-old male was seen by the Renal Service for his acute kidney injury. At that time, he had an elevated creatinine of 2.42. He was given IV hydration. Renal function is much improved with a creatinine 1.83. Also of note, he has a history of chronic obstructive uropathy and has had received a stent placement with Dr. Sanabria. He was also felt to be septic. He has been empirically treated with IV antibiotics. He is feeling better. No complaints. No chest pain or shortness of breath. OBJECTIVE: VITAL SIGNS: Blood pressure 142/84, heart rate 62, respiratory rate 18, temperature 98.6, and pulse ox 95%. GENERAL: Noted to be awake, alert, and comfortable. SKIN: Adequate turgor. HEENT: He has pinkish conjunctivae. Anicteric sclerae. No neck mass. No carotid bruits. No JVD. CHEST: No deformities. LUNGS: Clear breath sounds. HEART: Normal sinus rhythm. No murmur. No gallops or rubs. ABDOMEN: Globular, soft, and nontender. No masses. EXTREMITIES: No edema. No deformities. MEDICATIONS: Medications of October 19, 2018, reviewed. LABORATORY DATA: Laboratories of October 19, 2018, sodium 136, potassium 3.6, chloride 107, carbon dioxide 20, BUN 21, creatinine 1.83, glucose 100, AST 16, ALT 12, and albumin 3.4. ASSESSMENT AND PLAN: 1. Acute kidney injury on top of his chronic renal failure - hemodynamically-mediated renal dysfunction, much improved with IV hydration. He is nearing baseline creatinine. 2. Chronic renal failure - underlying chronic obstructive uropathy. 3. Sepsis syndrome - much improved on IV antibiotics. Please note, that blood culture on October 16, showed Enterococcus faecalis. 4. Due to the much improved renal function, we will be signing off. Please call, if needed. I have given the patient my office number and telephone number for followup appointment. Job ID: [id number]
[2018-10-19] MEDS: Sodium Chloride 0.9% 1,000 ML IV SCH (16:27)
[2018-10-19] MEDS: Vancomycin HCl 1.5 GM in Sodium Chloride 0.9% 250 ML 300 ML IVPB SCH (17:18)
[2018-10-19 19:37] VITALS: TEMP 97.8
[2018-10-20] MEDS: Sodium Chloride 0.9% 1,000 ML IV SCH ×2 (03:40→08:45)
[2018-10-20 07:29] VITALS: BP 167/81
[2018-10-20] MEDS: cefTRIAXone\\ROCEPHIN 1 GM in Sodium Chloride 0.9% 100 ML IVPB SCH (08:41)
[2018-10-20] MEDS: Saccharomyces boulardii 250 MG CAP PO SCH (08:41)
[2018-10-20] MEDS: Famotidine 20 MG TAB PO SCH (08:42)
[2018-10-20] MEDS: Heparin 5,000 UNITS/ML VIAL SC SCH (08:45)
--- NOTE | 2018-10-20 11:06 | PDOC.PN ---
- Subjective Encounter Start Date: 10/20/18 Encounter Start Time: 10:30 Patient seen and examined. No new complaints. No overnight events - Objective Resuscitation Status - Order Detail: 10/16/18 21:18 Resuscitation Status Routine Resuscitation Status: FULL: Full Resuscitation MAR Reviewed: Yes Vital Signs & Weight: Vital Signs (12 hours) Temp Pulse Resp BP Pulse Ox 10/20/18 07:27 97.8 F 53 L 16 167/81 H 95 Weight Weight 185 lb 11.2 oz I&O: 10/19/18 10/20/18 10/21/18 06:59 06:59 06:59 Intake Total 1680 1680 Output Total 2075 275 Balance -395 1405 Result Diagrams: 10/19/18 08:10 10/19/18 08:10 Phys Exam - Physical Examination Constitutional: NAD HEENT: PERRLA, moist MMs, sclera anicteric Neck: no JVD, supple Respiratory: no wheezing, no rales, no rhonchi Cardiovascular: RRR, no significant murmur, no rub Gastrointestinal: soft, non-tender, no distention, positive bowel sounds Musculoskeletal: no edema, pulses present Neurological: non-focal, normal sensation Lymphatic: no nodes Psychiatric: normal affect, A&O x 3 Skin: no rash, normal turgor Dx/Plan (1) Acute worsening of stage 3 chronic kidney disease Code(s): N18.3 - CHRONIC KIDNEY DISEASE, STAGE 3 (MODERATE) Status: Acute (2) Sepsis with acute organ dysfunction Code(s): A41.9 - SEPSIS, UNSPECIFIED ORGANISM; R65.20 - SEVERE SEPSIS WITHOUT SEPTIC SHOCK Status: Acute (3) UTI (urinary tract infection) Status: Acute (4) H/O prostate cancer Code(s): Z85.46 - PERSONAL HISTORY OF MALIGNANT NEOPLASM OF PROSTATE Status: Chronic (5) Bacteremia due to Enterococcus Code(s): R78.81 - BACTEREMIA; B95.2 - ENTEROCOCCUS THE CAUSE OF DISEASES CLASSIFIED ELSEWHERE Status: Acute (6) Hydronephrosis, right Code(s): N13.30 - UNSPECIFIED HYDRONEPHROSIS Status: Chronic (7) Nephrolithiasis Status: Chronic (8) Obstructive uropathy Code(s): N13.9 - OBSTRUCTIVE AND REFLUX UROPATHY, UNSPECIFIED Status: Chronic - Plan cont current plan of care, continue antibiotics * medication reviewed as below * symptomatic treatment * see my discharge radha. Review of Systems - Review of Systems ENT: negative: Ear Pain, Ear Discharge, Nose Pain, Nose Discharge, Nose Congestion, Mouth Pain, Mouth Swelling, Throat Pain, Throat Swelling, Other Respiratory: negative: Cough, Dry, Shortness of Breath, Hemoptysis, SOB with Excertion, Pleuritic Pain, Sputum, Wheezing Cardiovascular: negative: chest pain, palpitations, orthopnea, paroxysmal nocturnal dyspnea, edema, light headedness, other Gastrointestinal: negative: Nausea, Vomiting, Abdominal Pain, Diarrhea, Constipation, Melena, Hematochezia, Other Genitourinary: negative: Dysuria, Frequency, Incontinence, Hematuria, Retention , Other Musculoskeletal: negative: Neck Pain, Shoulder Pain, Arm Pain, Back Pain, Hand Pain, Leg Pain, Foot Pain, Other - Medications/Allergies Allergies/Adverse Reactions: Allergies Allergy/AdvReac Type Severity Reaction Status Date / Time No Known Drug Allergies Allergy Verified 10/17/18 01:15 Medications: Current Medications Acetaminophen (Tylenol) 650 mg PO Q4H PRN PRN Reason: Headache/Fever/Mild Pain (1-3) Last Admin: 10/17/18 17:47 Dose: 650 mg Artificial Tears (Tears Naturale) 2 drop EA EYE PRN PRN PRN Reason: Dry Eyes Bisacodyl (Dulcolax) 10 mg PO DAILYPRN PRN PRN Reason: Constipation Famotidine (Pepcid) 20 mg PO QAM [facility] Last Admin: 10/20/18 08:42 Dose: 20 mg Guaifenesin (Robitussin Sf) 200 mg PO Q4H PRN PRN Reason: Cough Heparin Sodium (Porcine) (Heparin) 5,000 units SC BID [facility] Last Admin: 10/20/18 08:45 Dose: Not Given Hydralazine HCl (Apresoline) 10 mg SLOW IVP Q4H PRN PRN Reason: SBP > 180 and HR < 70 Ciprofloxacin/Dextrose 400 mg/ (Device) 200 mls @ 200 mls/hr IVPB Q12HR [facility] Last Admin: 10/20/18 08:41 Dose: 200 mls Ceftriaxone Sodium 1 gm/ (Sodium Chloride) 100 mls @ 200 mls/hr IVPB 0800 [facility] Last Admin: 10/20/18 08:41 Dose: 100 mls Sodium Chloride (Normal Saline 0.9%) 1,000 mls @ 100 mls/hr IV .Q10H [facility] Last Admin: 10/20/18 08:45 Dose: Not Given Vancomycin HCl 1.5 gm/ Sodium (Chloride) 300 mls @ 200 mls/hr IVPB Q24HR@1700 [facility] Last Admin: 10/19/18 17:18 Dose: 300 mls Loperamide HCl (Imodium) 2 mg PO PRN PRN PRN Reason: Diarrhea/Loose Stools Loratadine (Claritin) 10 mg PO DAILYPRN PRN PRN Reason: Sinus Symptoms Mineral Oil/White Petrolatum (Eucerin Cream) 0 gm TOP BIDPRN PRN PRN Reason: Dry Skin Miscellaneous Medication (Pharmacy To Dose) 1 each IVPB PRN PRN PRN Reason: Pharmacy to dose Ondansetron HCl (Zofran Odt) 4 mg PO Q6H PRN PRN Reason: Nausea/Vomiting Ondansetron HCl (Zofran) 4 mg IVP Q6H PRN PRN Reason: Nausea/Vomiting Saccharomyces Boulardii (Florastor) 250 mg PO DAILY [facility] Last Admin: 10/20/18 08:41 Dose: 250 mg Senna/Docusate Sodium (Senokot S) 2 tab PO BIDPRN PRN PRN Reason: Constipation Sodium Chloride (Flush - Normal Saline) 10 ml IVF Q12HR PRN PRN Reason: Saline Flush Sodium Chloride (Flush - Normal Saline) 10 ml IVF PRN PRN PRN Reason: Saline Flush Sodium Chloride ([place] Nasal [place]attan 0.65%) 0 ml EA NARE QIDPRN PRN PRN Reason: Nasal Congestion Throat Lozenges (Cepastat Lozenges) 1 erica PO Q2H PRN PRN Reason: Sore Throat Zolpidem Tartrate (Ambien) 5 mg PO HSPRN PRN PRN Reason: Insomnia
--- NOTE | 2018-10-20 11:25 | DIS ---
DATE OF ADMISSION: 10/16/2018 DATE OF DISCHARGE: 10/20/2018 PRIMARY CARE PHYSICIAN: [facility] call admission. DISCHARGE DISPOSITION: Home. PRIMARY DISCHARGE DIAGNOSES: Bacteremia due to Enterococcus faecalis sepsis with acute organ dysfunction, urinary tract infection and acute on chronic kidney failure, and baseline chronic kidney disease stage 3. SECONDARY DISCHARGE DIAGNOSES: History of prostate cancer, right hydronephrosis, nephrolithiasis, obstructive uropathy, and chronic kidney disease stage 3. PRIMARY PROCEDURE/OPERATION: None. RADIOLOGIST INVESTIGATION: Chest x-ray normal. CT of brain negative. Renal ultrasound showed right hydronephrosis, nephrolithiasis. SIGNIFICANT LABORATORY DATA: WBC 6.4, hemoglobin 12.2, and platelet 157. Sodium 136, potassium 3.6, BUN 21, creatinine 1.83, and calcium 8.7. LFT normal. Cardiac enzyme negative. Lipase 34. Urinalysis suggestive of UTI. Blood culture positive for enterococcus faecalis. Influenza screen negative. DISCHARGE MEDICATIONS: 1. Augmentin 875 mg twice daily for 15 days. 2. Florastor 250 mg p.o. daily for 15 days. CONTRAINDICATION: None. CODE STATUS: Full code. INPATIENT CONSULTANTS: 1. Dr. Palomares was following while in hospital for renal failure. 2. Dr. Donny Sanabria was consulted for prostate cancer. TEST RESULTS PENDING ON DISCHARGE: None. ALLERGIES: NO KNOWN DRUG ALLERGIES. DISCHARGE PLAN: Posthospital, the patient will follow up with primary care physician, Dr. Palomares and Dr. Sanabria as instructed. HOSPITAL COURSE: A 68-year-old male who was admitted by Dr. Barrientos, I could not see any H and P dictated by him. If H and P needed, then we have to notify Dr. Barrientos to get his H and P. The patient was admitted on October 16, 2018. I started taking care of him on October 17, 2018. The patient has underlying UTI symptoms. He was found with sepsis with acute organ dysfunction. He had acute on chronic kidney failure. He had urinary tract infection symptoms. He was meeting sepsis with acute organ dysfunction criteria. He was admitted to medical floor. He was treated with IV fluid and empiric antibiotic therapy with Cipro. Subsequently, I added Rocephin and vancomycin. He was given IV fluids for renal failure. His renal function was improving. He had positive blood culture with Enterococcus faecalis. Based on culture sensitive result, we changed to Augmentin on discharge. His influenza screen remained negative. His leukocytosis improved. His renal function improved, and his fever completely resolved. His UTI symptoms resolved. He had ultrasound kidney, which showed right hydronephrosis. This patient has underlying chronic obstructive uropathy with array of prostate cancer and Dr. Sanabria was consulted. This patient was no longer have funding, and he cannot afford a Lupron shot periodically as well as he was not interested in going for orchiectomy and that is why the patient decided by himself to go back to [place] to get medical treatment for his prostate cancer. At this point, his UTI has resolved and he will continue Augmentin for another 15 days, and he will follow up with primary care physician as well as healthcare network consultant. PHYSICAL EXAMINATION: VITAL SIGNS: The patient is seen and examined at bedside today; currently temperature 97.8, pulse 58, respiratory rate 16, saturation 95% on room air, and blood pressure 167/81. Weight 185 pounds. GENERAL: The patient is currently alert and awake. No obvious acute distress. HEAD: Normocephalic and atraumatic. Eyes, pupils round, and reactive to light. Extraocular muscle intact. ENT: Oropharynx within normal limits. Moist mucous membrane. No oral lesion. No pharyngeal erythema. No exudate. NECK: Supple. No JVD. No thyromegaly. No carotid bruit. LUNGS: Clear to auscultation without any rhonchi or rales. CARDIAC: S1 and S2 regular without any murmur. ABDOMEN: Soft and benign without any suprapubic tenderness. EXTREMITIES: No edema. NEUROLOGIC: Nonfocal examination. REVIEW OF SYSTEMS: Reviewed with him and negative. All new medication prescription sent to his pharmacy. The patient is medically stable for discharge today. Job ID: [id number]
--- NOTE | 2018-10-21 11:56 | EKG ---
Test Reason : WEAKNESS Blood Pressure : / mmHG Vent. Rate : 110 BPM Atrial Rate : 110 BPM P-R Int : 168 ms QRS Dur : 096 ms QT Int : 310 ms P-R-T Axes : 050 -18 051 degrees QTc Int : 419 ms Sinus tachycardia Possible Left atrial enlargement Inferior infarct , age undetermined Abnormal ECG Confirmed by ADRIEN MCCOY, LACHELLE ([id number]), production editor GENNARO BARNETT ([id number]) on 10/21/2018 11:56:41 AM Referred By: Confirmed By:LACHELLE JURADO MD
== END 2018-10-20 12:43 | disposition home or self-care (01) | DRG 872 ==
LOC: ERS 16:02 → ERHOLD 22:38 → T4-A 10-17 01:14
PROVIDERS: ADMIT Internal Medicine; ATTEND Internal Medicine
DX: A41.81 Sepsis due to Enterococcus (principal); N39.0 Urinary tract infection, site not specified; N17.9 Acute kidney failure, unspecified; N13.2 Hydronephrosis with renal and ureteral calculous obstruction; N18.3 Chronic kidney disease, stage 3 (moderate); Z85.46 Personal history of malignant neoplasm of prostate; N13.9 Obstructive and reflux uropathy, unspecified; R65.20 Severe sepsis without septic shock
CPT/HCPCS: 36415; 51702; 70450; 71045; 76770; 80048; 80053; 80202; 81003; 81015; 82550; 82553; 83605; 83690; 83880; 84484; 85025; 87040; 87077; 87149; 87186; 87804; 93005; 96361; 96365; 96366; 96367; G8978-GP-CH; G8979-GP-CH; G8980-GP-CH; J0692; J0696; J0744; J1644; J1956; J3370; J7050